=== PATIENT | female | born 1970 | race Caucasian/White ===

== ENCOUNTER 2023-09-16 14:37 | Outpatient (AMB) | payer BC, SELFPAY ==
--- NOTE | 2023-09-16 15:03 | A.OFFVIS_ITS ---
Intake Vital Signs 09/16/23 15:06 Height 5 ft 6 in Weight 162 lb 11.218 oz BMI 26.3 BP 122/68 Blood Pressure Location Rt brachial Position Sitting Pulse 79 Pulse Source Pulse Oximeter Pulse Oximetry (%) 98 Oxygen Delivery Method Room Air Intake Visit Reasons: + RITESH Intake Note: New pt presents today for +RITESH consult, referred by physiatry Dr Bowens. C/o pain in multiple areas. Pain started May 2022. Has tried PT, reports neck injection with Dr Bowens's office on Thursday. 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 Patient stated that since May 2022 she has been having neck pain. She also gets intermittent pain in her wrists and ankles. She has morning stiffness of her hands lasting about 2 hours. She gets intermittent She has gone through multiple rounds of chiropractor as well as physical therapy and stretching exercises. Yoga. Evaluated by Dr. Gilbert linn. She stated that at some point prednisone was prescribed a few weeks which did provide about 50% relief of the pain in her peripheral joints. She takes ibuprofen about 1200 mg a day in total. She stated that she had steroid injection by Dr. Bowens 2 days ago, she can not tell whether it has helped her or not. She denies any skin rashes. She states that she feels her fingers are puffy. She denies any history suggestive of Raynaud's. Denies any history of DVT/PE. She had 5 pregnancies in total, 4 children and 1 miscarriage. Denies any weight loss. Stated that in 2018 she was diagnosed with colon cancer and she had colon resection followed by chemotherapy. Chemotherapy was completed in 2019. States that she she was recently checked and there was no evidence of recurrence of her colon cancer. She is unaware of any family history of an autoimmune rheumatic disease but she has 2 sisters with thyroid disease. [facility] Medical History (Updated 09/16/23 @ 15:48 by Merline Multani MD) History of basal cell cancer Colon cancer RITESH positive Cervicalgia Pain in joint, multiple sites Surgical History S/P colon resection Family History Sister Thyroid disease Mother No problems noted. Father No problems noted. 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 Female Reproductive History Menstrual Total pregnancies: 5 Full term: 4 Ab spontaneous: 1 Review of Systems Const Reports fatigue, Denies fever(s), Reports frequent falls, Reports headache(s) and Denies weight loss ENT Reports headache(s) and Reports neck pain Musc Reports back pain, Reports arthralgias, Reports joint swelling, Reports neck pain and Reports stiffness Skin/Breast Denies rash and Reports unusual bruising Neuro Reports frequent falls and Reports headache(s) Psych Reports abnormal sleep pattern Endo Reports fatigue Physical Exam Vital Signs: Last Vital Signs Pulse 79 09/16/23 15:06 BP 122/68 09/16/23 15:06 Pulse Ox 98 09/16/23 15:06 Oxygen Delivery Method Room Air 09/16/23 15:06 BMI result Body Mass Index 26.3 Const General: cooperative, healthy appearing and comfortable Nutritional Appearance: overweight Orientation/consciousness: patient oriented x3 Limitations: no limitations HEENT Head: Yes normocephalic and Yes atraumatic Mouth: moist mucous membranes Resp Effort & Inspection: normal respiratory effort and able to speak in complete sentences Auscultation: clear to auscultation bilaterally Cardio Rate: regular rate Rhythm: regular rhythm Skin General skin exam: no rashes or lesions noted Neuro General: patient oriented x3 Extrem Other: Minimal puffiness of her fingers No active synovitis both hands No tender joints Normal nailfold capillaroscopy Normal range of motion of hands, wrists, elbows and shoulders without pain Normal range of motion of knees without pain Assessment & Plan Assessment & Plan (1) RITESH positive: Code(s): R76.8 - Other specified abnormal immunological findings in serum Plan: This is a 52-year-old female who presents for evaluation of positive RITESH 1-12 80 nucleolar pattern in the setting of neck pain as well as pain in her hands and ankles. For comprehensive serology to screen for underlying autoimmune rheumatic disease. Follow-up in about 6 weeks Plan I spent 47 minutes reviewing patient's chart, evaluating patient, ordering diagnostic workup, counseling patient and documenting in the chart Orders: Orders RITESH Reflex Titer and Pattern Today M32.9 - Systemic lupus erythematosus, unspecified Complement C3 Today M32.9 - Systemic lupus erythematosus, unspecified Sjogren's Antibodies Today M32.9 - Systemic lupus erythematosus, unspecified UA w Microscopic Today M32.9 - Systemic lupus erythematosus, unspecified Complete Blood Count Auto Diff Today M32.9 - Systemic lupus erythematosus, unspecified Immunofixation Pnl, Serum Today M32.9 - Systemic lupus erythematosus, unspecified Cyclic Citrullinated Peptide Today M25.50 - Pain in unspecified joint Beta-2 Glycoprotein Antibody Today D68.61 - Antiphospholipid syndrome Thyroid Peroxidase Antibodies Today E07.9 - Disorder of thyroid, unspecified Anti Extractable Nuclear Ag Today M32.9 - Systemic lupus erythematosus, unspecified Anti DNA DS Antibody Today M32.9 - Systemic lupus erythematosus, unspecified Complement C4 Today M32.9 - Systemic lupus erythematosus, unspecified C Reactive Protein Today M32.9 - Systemic lupus erythematosus, unspecified DNA Double Stranded-Crithidia Today M32.9 - Systemic lupus erythematosus, unspecified Erythrocyte Sedimentation Rate Today M32.9 - Systemic lupus erythematosus, unspecified Protein Creatinine Ratio, Ur Today M32.9 - Systemic lupus erythematosus, unspecified Comprehensive Met. Panel Today M32.9 - Systemic lupus erythematosus, unspecified Hepatitis A,B,C Profile Today Z11.59 - Encounter for screening for other viral diseases T Spot TB Today Z11.7 - Encounter for testing for latent tuberculosis infection Protein Electrophoresis, Serum Today M32.9 - Systemic lupus erythematosus, unspecified Scleroderma 12 Panel Today M34.9 - Systemic sclerosis, unspecified Cardiolipin Antibodies Today D68.61 - Antiphospholipid syndrome Lupus Anticoagulant Panel Today D68.61 - Antiphospholipid syndrome Thyroglobulin Antibodies Today E07.9 - Disorder of thyroid, unspecified TSH reflex Free T4 Today E07.9 - Disorder of thyroid, unspecified Coding Level of Care Code New Pt Level 4 (09950) Diagnoses RITESH positive R76.8
[2023-09-16 15:06] VITALS: BP 122/68; PULSE 79; O2SAT 98; BMI 26.3
== END 2023-09-16 15:41 | disposition home or self-care (01) ==
PROVIDERS: PCP Internal Medicine; Referring Provider Internal Medicine; Visit Provider Student in an Organized Health Care Education/Training Program
DX: R76.8 Other specified abnormal immunological findings in serum (principal)
CPT/HCPCS: 99204

== ENCOUNTER 2023-09-16 14:37 | Outpatient (REF) | payer BC, SELFPAY ==
[2023-09-16 16:04] LABS: MANUAL DIFF FLAG NO
[2023-09-16 16:54] LABS: Basophils Percent Auto 0.4 % (0-2); Hematocrit 41.8 % (37.0-47.0); Hemoglobin 13.9 g/dl (12.0-16.0); Imm Gran Abs Auto 0.03 X10*3/uL (0.00-0.03); Imm Gran Pct Auto 0.4 % (0.0-0.4); Lymphocytes Absolute Auto 1.4 X10*3/uL (1.2-4.9); Lymphocytes Percent Auto 16.8 % (20-40); Mean Corpuscular HGB Conc 33.3 g/dl (31.0-35.0); Mean Corpuscular Hemoglobin 28.7 pg (27.0-33.0); Mean Corpuscular Volume 86.2 fL (80.0-98.0); Mean Platelet Volume 9.5 fL (9.4-12.3); Monocytes Absolute Auto 0.5 X10*3/uL (0.1-1.2); Neutrophils Absolute Auto 6.3 x10*3/uL (2.0-8.3); Neutrophils Percent Auto 76.4 % (45-73); Platelet Count 358 X10*3/uL (160-400); Red Blood Count 4.85 X10*6/uL (4.20-5.50); Red Cell Distribution Width 12.5 % (11.0-16.0); White Blood Count 8.3 X10*3/uL (4.8-10.8)
[2023-09-16 17:28] LABS: Alanine Aminotransferase 17 U/L (0-31); Albumin Level 5.2 g/dL (3.5-5.0); Alkaline Phosphatase 96 U/L (39-117); Anion Gap 13 (12-20); Aspartate Amino Transferase 20 U/L (5-31); Bilirubin Total 0.3 mg/dL (0.0-1.0); Blood Urea Nitrogen 13 mg/dL (9-16); C Reactive Protein < 0.10 mg/dL (< or = 0.50); Carbon Dioxide 28 mmol/L (22-29); Chloride 103 mmol/L (96-108); Estimated Glomerular Filt Rate > 60; Glucose Random 94 mg/dL (60-115); Potassium 4.2 mmol/L (3.3-5.1); Sodium 140 mmol/L (135-145); Total Protein 8.9 g/dL (6.5-8.0)
[2023-09-16 17:37] LABS: TSH reflex Free T4 3.93 uIU/mL (0.32-4.0)
[2023-09-16 17:37] LABS: Appearance Urine Clear; Color Urine Yellow; Glucose Urine UA Negative (Negative); Leukocyte Esterase Urine Negative (Negative); Nitrite Urine Negative (Negative); PH 5.5 (5.0-9.0); Urine Blood Negative (Negative); Urine Ketones Negative (Negative); Urine Protein Negative (Neg-Trace)
[2023-09-16 17:41] LABS: Creatinine Urine 40.78 mg/dL; Total Protein Urine Random < 7 mg/dL (<12)
[2023-09-16 17:41] LABS: Erythrocyte Sedimentation Rate 23 MM/HR (0-20)
[2023-09-16 17:43] LABS: Bacteria Urine 1+ (None Seen); Hyaline Casts Urine 0-2 /LPF (0-2); RBC Urine 0-2 /HPF (0-2); WBC Urine 0-5 /HPF (0-5)
[2023-09-17 08:36] LABS: HBS Num1 0.75 mIU/mL (0-7.99); HBc Num1 0.13 S/CO (0.00-0.79); HBsAGNum1 0.27 S/CO (0.00-0.99); Hepatitis A Antibody IgM 0.17 Index (0-0.79); Hepatitis B Core Antibody Nonreactive (Nonreactive); Hepatitis B Surface Antigen Negative (Negative); ~Hepatitis A Antibody IgM Nonreactive (Nonreactive); ~Hepatitis B Surface Antibody NONREACTIVE (Nonreactive); ~Hepatitis C Antibody Nonreactive (Nonreactive)
[2023-09-17 11:33] LABS: Thyroglobulin Antibodies <1 IU/mL (< or = 1); Thyroid Peroxidase Antibodies 1 IU/mL (<9)
[2023-09-17 13:33] LABS: Anti DNA DS Antibody 2 IU/mL; Antibody to SS-A Antigen <1.0 NEG AI (<1.0 NEG); Antibody to SS-B Antigen <1.0 NEG AI (<1.0 NEG); SM/Ribonucleoprotein Ab <1.0 NEG AI (<1.0 NEG); Smith Protein <1.0 NEG AI (<1.0 NEG)
[2023-09-17 14:08] LABS: Cyclic Citrullinated Peptide <16 UNITS
[2023-09-17 22:48] LABS: Cardiolipin IgG Ab <2.0 GPL-U/mL; Cardiolipin IgM Ab 5.6 MPL-U/mL
[2023-09-18 15:44] LABS: Complement C3 206 mg/dL (83-193)
[2023-09-18 22:44] LABS: Prot Elec - Albumin 5.6 g/dL (3.8-4.8); Prot Elec - Alpha1 0.3 g/dL (0.2-0.3); Prot Elec - Alpha2 0.8 g/dL (0.5-0.9); Prot Elec - Beta 1 0.6 g/dL (0.4-0.6); Prot Elec - Beta 2 0.5 g/dL (0.2-0.5); Prot Elec - Gamma 1.2 g/dL (0.8-1.7); Prot Elec - Total Protein 9.1 g/dL (6.1-8.1)
[2023-09-18 23:29] LABS: TS Negative Control Passed; TS Panel A 0; TS Panel B 0; TS Positive Control Passed; TSpotTB Negative (Negative)
[2023-09-20 16:19] LABS: Beta-2 Glycoprotein IgA <2.0 U/mL (<20.0); Beta-2 Glycoprotein IgG <2.0 U/mL (<20.0); Beta-2 Glycoprotein IgM 2.4 U/mL (<20.0)
[2023-09-21 15:08] LABS: IgA 233 mg/dL (47-310); IgG 1255 mg/dL (600-1640); IgM 182 mg/dL (50-300)
[2023-09-22 12:23] LABS: DNAds, Crithidia Antibody Positive (Negative)
[2023-09-22 12:43] LABS: DNAds, Crithidia Antibody 1:10 titer (<1:10)
[2023-09-22 12:53] LABS: ANA Pattern 2 Nuclear, Speckled; Anti Nuclear Antibody Screen POSITIVE (NEGATIVE)
[2023-09-24 05:13] LABS: PTT (LAC) Screen 28 sec (<=40)
[2023-09-29 13:09] LABS: Centromere Protein A Ab <11 SI (<11); Centromere Protein B Ab <11 SI (<11); Fibrillarin Ab <11 SI (<11); PM SCL 100 Ab <11 SI (<11); PM SCL 75 Ab <11 SI (<11); RNA Polymerase III RP11 Ab <11 SI (<11); RNA Polymerase III RP155 Ab <11 SI (<11); SCL-70 Extractable Nuclear Ab <11 SI (<11); Th-To Ab <11 SI (<11); U1 SNRNP RNP 70KD <11 SI (<11); U1 SNRNP RNP A <11 SI (<11); U1 SNRNP RNP C <11 SI (<11)
== END 2023-09-16 14:38 | disposition home or self-care (01) ==
LOC: HO.LAB 14:37
PROVIDERS: PCP Internal Medicine; Visit Provider Student in an Organized Health Care Education/Training Program
DX: M32.9 Systemic lupus erythematosus, unspecified (principal); D68.61 Antiphospholipid syndrome; M25.50 Pain in unspecified joint; E07.9 Disorder of thyroid, unspecified; Z11.59 Encounter for screening for other viral diseases; Z11.7 Encounter for testing for latent tuberculosis infection
CPT/HCPCS: 36415; 80053; 81001; 82570; 82784; 84156; 84165; 84182; 84443; 85025; 85597; 85598; 85613; 85652; 85730; 86038; 86039; 86140; 86146; 86147; 86160; 86200; 86225; 86235; 86255; 86334; 86376; 86481; 86704; 86706; 86709; 86800; 86803; 87340

== ENCOUNTER 2023-11-05 12:33 | Outpatient (AMB) | payer BC, SELFPAY ==
[2023-11-05 12:38] VITALS: BP 126/78; PULSE 70; O2SAT 99; BMI 26.0
--- NOTE | 2023-11-05 12:38 | A.OFFVIS_ITS ---
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 She states that she gets pain and achiness in her hands, wrists, ankles, feet. She gets intermittent swelling of her fingers. Her rings are getting tight. Initial history: This is a 52-year-old female who presents for evaluation of a positive RITESH. Patient stated that since May 2022 she has been having neck pain. She also gets intermittent pain in her wrists and ankles. She has morning stiffness of her hands lasting about 2 hours. She gets intermittent She has gone through multiple rounds of chiropractor as well as physical therapy and stretching exercises. Yoga. Evaluated by Dr. Gilbert linn. She stated that at some point prednisone was prescribed a few weeks which did provide about 50% relief of the pain in her peripheral joints. She takes ibuprofen about 1200 mg a day in total. She stated that she had steroid injection by Dr. Bowens 2 days ago, she can not tell whether it has helped her or not. She denies any skin rashes. She states that she feels her fingers are puffy. She denies any history suggestive of Raynaud's. Denies any history of DVT/PE. She had 5 pregnancies in total, 4 children and 1 miscarriage. Denies any weight loss. Stated that in 2018 she was diagnosed with colon cancer and she had colon resection followed by chemotherapy. Chemotherapy was completed in 2019. States that she she was recently checked and there was no evidence of recurrence of her colon cancer. She is unaware of any family history of an autoimmune rheumatic disease but she has 2 sisters with thyroid disease. [facility] Medical History History of basal cell cancer Colon cancer RITESH positive Cervicalgia Pain in joint, multiple sites Surgical History S/P colon resection Family History Sister Thyroid disease Mother No problems noted. Father No problems noted. 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 Female Reproductive History Menstrual Total pregnancies: 5 Full term: 4 Ab spontaneous: 1 Review of Systems Const Reports fatigue, Denies fever(s) and Denies weight loss ENT Reports neck pain Musc Reports back pain, Reports arthralgias, Reports joint swelling, Reports neck pain and Reports stiffness Skin/Breast Denies rash and Reports unusual bruising Endo Reports fatigue Physical Exam Vital Signs: Last Vital Signs Pulse 70 11/05/23 12:38 BP 126/78 11/05/23 12:38 Pulse Ox 99 11/05/23 12:38 Oxygen Delivery Method Room Air 11/05/23 12:38 BMI result Body Mass Index 26.0 Const General: cooperative, healthy appearing and comfortable Nutritional Appearance: overweight Orientation/consciousness: patient oriented x3 Limitations: no limitations HEENT Head: Yes normocephalic and Yes atraumatic Mouth: moist mucous membranes Resp Effort & Inspection: normal respiratory effort and able to speak in complete sentences Auscultation: clear to auscultation bilaterally Cardio Rate: regular rate Rhythm: regular rhythm Skin General skin exam: no rashes or lesions noted Neuro General: patient oriented x3 Extrem Other: Minimal puffiness of her fingers and toes Bilateral elbow pain with full extension Left ankle tenderness to palpation without significant swelling No tender joints Normal nailfold capillaroscopy Normal range of motion of hands, wrists, elbows and shoulders without pain Normal range of motion of knees without pain Assessment & Plan Assessment & Plan (1) RITESH positive: Code(s): R76.8 - Other specified abnormal immunological findings in serum Category: Medical Plan: This is a 52-year-old female who presents for evaluation of positive RITESH. Dianna is negative except for borderline positive dsDNA. On exam patient has mild puffiness of her fingers and toes. Clinical picture suspicious for UCTD. Discussed risks and benefits of hydroxychloroquine. Patient agreed to proceed. Start hydroxychloroquine 200 mg Twice daily. Plan to reduce hydroxychloroquine in subsequent doses to 200 mg Twice daily x5 days and 200 mg daily x2 days a week (2) Hypercalcemia: Code(s): E83.52 - Hypercalcemia Category: Medical Plan: Elevated serum calcium. 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 Referred patient to galley hand Plan I spent 27 minutes reviewing patient's chart, evaluating patient, ordering diagnostic workup, counseling patient and documenting in the chart Orders: Orders Parathyroid Hormone Intact Today E83.52 - Hypercalcemia Vitamin D 25-OH (D2 and D3) Today E83.52 - Hypercalcemia Magnesium Today E83.52 - Hypercalcemia Angiotensin Converting Enzyme Today E83.52 - Hypercalcemia Comprehensive Met. Panel Today E83.52 - Hypercalcemia Vitamin D 1,25 dihydroxy Today E83.52 - Hypercalcemia Phosphorus Today E83.52 - Hypercalcemia Referrals Ophthalmology Referral Z79.899 - Other termite exterminator (current) drug therapy Medications: New hydroxychloroquine 200 mg PO BID 60 tabs 2RF Coding Level of Care Code Est Pt Level 4 (78938) Diagnoses RITESH positive R76.8 Hypercalcemia E83.52 Long-term use of hydroxychloroquine Z79.899
== END 2023-11-05 13:07 | disposition home or self-care (01) ==
PROVIDERS: PCP Internal Medicine; Visit Provider Student in an Organized Health Care Education/Training Program
DX: R76.8 Other specified abnormal immunological findings in serum (principal); E83.52 Hypercalcemia; Z79.899 Other long term (current) drug therapy
CPT/HCPCS: 99214

== ENCOUNTER 2023-11-05 12:33 | Outpatient (REF) | payer BC, SELFPAY ==
[2023-11-05 15:06] LABS: Parathyroid Hormone Intact 71.9 pg/mL (8.7-77.1)
[2023-11-05 15:08] LABS: Alanine Aminotransferase 17 U/L (0-31); Albumin Level 4.9 g/dL (3.5-5.0); Alkaline Phosphatase 91 U/L (39-117); Anion Gap 12 (12-20); Aspartate Amino Transferase 28 U/L (5-31); Bilirubin Total 0.4 mg/dL (0.0-1.0); Blood Urea Nitrogen 18 mg/dL (9-16); Calcium 10.5 mg/dL (8.4-10.2); Carbon Dioxide 28 mmol/L (22-29); Chloride 106 mmol/L (96-108); Estimated Glomerular Filt Rate > 60; Glucose Random 87 mg/dL (60-115); Magnesium 2.1 mg/dL (1.6-2.6); Phosphorus 2.6 mg/dL (2.7-4.5); Potassium 4.3 mmol/L (3.3-5.1); Sodium 142 mmol/L (135-145); Total Protein 8.4 g/dL (6.5-8.0)
[2023-11-09 20:43] LABS: VITAMIN D (1,25 OH) D3 56 pg/mL; Vit D (1,25-Dihydroxy) Total 56 pg/mL (18-72); Vitamin D (1,25 OH) D2 <8 pg/mL
[2023-11-10 12:38] LABS: Vitamin D 25-OH, D2 <4 ng/mL; Vitamin D 25-OH, D3 44 ng/mL; Vitamin D 25-OH, Total 44 ng/mL (30-100)
[2023-11-10 15:03] LABS: Angiotensin Converting Enzyme 54.4 U/L (9-67)
== END 2023-11-05 12:34 | disposition home or self-care (01) ==
LOC: HO.LAB 12:33
PROVIDERS: PCP Internal Medicine; Visit Provider Student in an Organized Health Care Education/Training Program
DX: E83.52 Hypercalcemia (principal)
CPT/HCPCS: 36415; 80053; 82164; 82306; 82652; 83735; 83970; 84100

== ENCOUNTER 2024-04-06 13:23 | Outpatient (AMB) | payer BC, SELFPAY ==
--- NOTE | 2024-04-06 13:31 | A.OFFVIS_ITS ---
Vital Signs 04/06/24 13:35 Height 5 ft 6 in Weight 158 lb 4.67 oz BMI 25.5 BP 120/62 Blood Pressure Location Rt brachial Position Sitting Pulse 79 Pulse Source Pulse Oximeter Pulse Oximetry (%) 91 L Oxygen Delivery Method Room Air Intake Visit Reasons: UCTD/CM Intake Note: Patient presents for UCTD. Allergies No Known Allergies Allergy (Verified 04/06/24 13:34) Medication List - Last Reconciled 04/06/24 by Merline Multani MD amlodipine 5 mg PO DAILY celecoxib 100 mg PO BID PRN diclofenac sodium 75 mg PO BID PRN hydroxychloroquine 200 mg PO BID sertraline 50 mg PO DAILY HPI Comments Details: 53-year-old female with UCTD returns for follow-up. She has been taking hydroxychloroquine regularly for the last 5 months. She states that she feels better overall. About 50% improvement in her overall joint pains. She continues to have pain in her entire left arm, left wrist, right low back. She states that she has done PT in the past for her neck, wrists, elbow. It did not help much. Initial history: This is a 52-year-old female who presents for evaluation of a positive RITESH. Patient stated that since May 2022 she has been having neck pain. She also gets intermittent pain in her wrists and ankles. She has morning stiffness of her hands lasting about 2 hours. She gets intermittent She has gone through multiple rounds of chiropractor as well as physical therapy and stretching exercises. Yoga. Evaluated by Dr. Gilbert linn. She stated that at some point prednisone was prescribed a few weeks which did provide about 50% relief of the pain in her peripheral joints. She takes ibuprofen about 1200 mg a day in total. She stated that she had steroid injection by Dr. Bowens 2 days ago, she can not tell whether it has helped her or not. She denies any skin rashes. She states that she feels her fingers are puffy. She denies any history suggestive of Raynaud's. Denies any history of DVT/PE. She had 5 pregnancies in total, 4 children and 1 miscarriage. Denies any weight loss. Stated that in 2018 she was diagnosed with colon cancer and she had colon resection followed by chemotherapy. Chemotherapy was completed in 2019. States that she she was recently checked and there was no evidence of recurrence of her colon cancer. She is unaware of any family history of an autoimmune rheumatic disease but she has 2 sisters with thyroid disease. [facility] Medical History History of basal cell cancer Colon cancer RITESH positive Cervicalgia Pain in joint, multiple sites Surgical History S/P colon resection Family History Sister Thyroid disease Mother No problems noted. Father No problems noted. 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 Female Reproductive History Menstrual Total pregnancies: 5 Full term: 4 Ab spontaneous: 1 Review of Systems ENT Reports neck pain Musc Reports back pain, Reports arthralgias, Reports neck pain and Reports stiffness Skin/Breast Denies rash Physical Exam Vital Signs: Last Vital Signs Pulse 79 04/06/24 13:35 BP 120/62 04/06/24 13:35 Pulse Ox 91 L 04/06/24 13:35 Oxygen Delivery Method Room Air 04/06/24 13:35 BMI result Body Mass Index 25.5 Const General: cooperative, healthy appearing and comfortable Nutritional Appearance: overweight Orientation/consciousness: patient oriented x3 Limitations: no limitations HEENT Head: Yes normocephalic and Yes atraumatic Mouth: moist mucous membranes Resp Effort & Inspection: normal respiratory effort and able to speak in complete sentences Cardio Rate: regular rate Rhythm: regular rhythm Skin General skin exam: no rashes or lesions noted Neuro General: patient oriented x3 Extrem Other: No wrist swelling or tenderness or pain with flexion-extension bilaterally No elbow pain with full flexion-extension Mild tenderness at the left common flexor origin at the medial epicondyle Negative resisted wrist flexion and resisted wrist extension test on the left Normal pain-free range of motion of elbows and shoulders without pain Slightly positive empty can test on the left Negative infraspinatus delmy bilaterally Positive lift-off test on the left Normal range of motion of knees without pain No ankle swelling or tenderness bilaterally Normal nailfold capillaroscopy Assessment & Plan Assessment & Plan (1) RITESH positive: Comment: UCTD dx 10/2023 (arthralgias ++ RITESH) Code(s): R76.8 - Other specified abnormal immunological findings in serum Category: Medical Plan: This is a 53-year-old female with UCTD who presents for follow-up. Doing better overall since hydroxychloroquine was started last visit. About 60% reported improvement. On exam today there are no tender joints. I think hydroxychloroquine was helpful and it is worth continuing. Continue with hydroxychloroquine but adjust the dose to 400 mg daily x5 days a week and 200 mg daily x2 days a week I think patient has other mechanical and degenerative causes of pain such as left golfer's elbow, mild left rotator cuff tendinopathy, mild cervical and lumbar osteoarthritis. 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 Advised patient to follow-up regularly with casket coverer Plan I spent 27 minutes reviewing patient's chart, evaluating patient, ordering diagnostic workup, counseling patient and documenting in the chart Medications: Changed From hydroxychloroquine 200 mg PO BID 60 tabs 2RF To hydroxychloroquine Take 2 tabs daily x5 days a week and 1 tab daily x2 days a week 144 tabs 1RF Coding Level of Care Code Est Pt Level 4 (18337) Diagnoses RITESH positive R76.8 Long-term use of hydroxychloroquine Z79.899
[2024-04-06 13:35] VITALS: BP 120/62; PULSE 79; O2SAT 91; BMI 25.5
== END 2024-04-06 13:57 | disposition home or self-care (01) ==
LOC: HO.RHE 13:24
PROVIDERS: PCP Internal Medicine; Visit Provider Student in an Organized Health Care Education/Training Program
DX: R76.8 Other specified abnormal immunological findings in serum (principal); Z79.899 Other long term (current) drug therapy
CPT/HCPCS: 99214

== ENCOUNTER 2024-10-06 13:33 | Outpatient (AMB) | payer BC, SELFPAY ==
[2024-10-06 13:47] VITALS: BP 118/66; PULSE 83; O2SAT 99; BMI 22.1
--- NOTE | 2024-10-06 13:47 | A.OFFVIS_ITS ---
Vital Signs 10/06/24 13:47 Height 5 ft 6 in Weight 137 lb 2.04 oz BMI 22.1 BP 118/66 Blood Pressure Location Lt brachial Position Sitting Pulse 83 Pulse Source Pulse Oximeter Pulse Oximetry (%) 99 Oxygen Delivery Method Room Air Intake Visit Reasons: UCTD Intake Note: Patient presents for follow up on RITESH+ today. Allergies No Known Allergies Allergy (Verified 10/06/24 13:52) Medication List - Last Reconciled 10/06/24 by Jerilyn Sivla MD amlodipine 5 mg PO DAILY diclofenac sodium 75 mg PO BID PRN hydroxychloroquine Take 2 tabs daily x5 days a week and 1 tab daily x2 days a week sertraline 50 mg PO DAILY HPI Comments Details: patient is a 53-year-old female with hypertension, depression and undifferentiated connective tissue disease here today for follow up Interval History: Patient last seen 04/06/[address] Multani. At that time she was following up for her undifferentiated connective tissue disease. She was taking hydroxychloroquine regularly and reported improvement in her joints about 50%. Other pains were attributed to mechanical/degenerative issues Today her main complaint is pain from her neck radiating down her arm Rheumatologic History: UCTD dx 10/2023 (arthralgias ++ RITESH) Initial history: This is a 52-year-old female who presents for evaluation of a positive RITESH. Patient stated that since May 2022 she has been having neck pain. She also gets intermittent pain in her wrists and ankles. She has morning stiffness of her hands lasting about 2 hours. She gets intermittent She has gone through multiple rounds of chiropractor as well as physical therapy and stretching exercises. Yoga. Evaluated by Dr. Gilbert linn. She stated that at some point prednisone was prescribed a few weeks which did provide about 50% relief of the pain in her peripheral joints. She takes ibuprofen about 1200 mg a day in total. She stated that she had steroid injection by Dr. Bowens 2 days ago, she can not tell whether it has helped her or not. She denies any skin rashes. She states that she feels her fingers are puffy. She denies any history suggestive of Raynaud's. Denies any history of DVT/PE. She had 5 pregnancies in total, 4 children and 1 miscarriage. Denies any weight loss. Stated that in 2018 she was diagnosed with colon cancer and she had colon resection followed by chemotherapy. Chemotherapy was completed in 2019. States that she she was recently checked and there was no evidence of recurrence of her colon cancer. She is unaware of any family history of an autoimmune rheumatic disease but she has 2 sisters with thyroid disease. Current Rheumatology Medication(s): hydroxychloroquine 200 mg twice a day for 5 days and then 200 mg daily for 2 days [facility] Medical History (Updated 10/06/24 @ 14:10 by Jerilyn Silva MD) Undifferentiated connective tissue disease History of basal cell cancer Colon cancer RITESH positive Cervicalgia Pain in joint, multiple sites Surgical History S/P colon resection Family History Sister Thyroid disease Mother No problems noted. Father No problems noted. 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 Review of Systems Const Details: Review of Systems Constitutional: Denies fever, chills, weight loss ENT: Denies vision changes, eye pain or eye redness, dental caries, dry mouth GI: Denies nausea, vomiting, diarrhea, abdominal pain, change in BM Pulm: Denies SOB, HINDS, hemoptysis, wheezing Cards: Denies chest pain, palpitations Skin: Denies Raynaud's, rash, nail changes, photosensitivity, TOOL CHECKER: Denies headaches, weakness, paresthesias, recurrent falls MSK: as per HPI All other systems reviewed and are unremarkable except noted above Physical Exam Vital Signs: Last Vital Signs Pulse 83 10/06/24 13:47 BP 118/66 10/06/24 13:47 Pulse Ox 99 10/06/24 13:47 Oxygen Delivery Method Room Air 10/06/24 13:47 BMI result Body Mass Index 22.1 Vital signs reviewed Physical Examination CONSTITUITIONAL Patient alert and cooperative. Well appearing and in no apparent painful distress HEENT Conjunctiva and sclera clear. Pupils equal round and reactive to light. No lymphadenopathy. CHEST/RESPIRATORY SYSTEM Normal respiratory effort and able to speak in complete sentences. Clear to auscultation bilaterally. No crackles, rales, rhonchi, wheezes heard. CARDIAC SYSTEM Regular rate and rhythm. S1 and S2 heard no murmurs. Radial pulses intact bilaterally MSK Hands: Able to make a fist. No synovitis noted to the MCPs, PIPs or DIPs. No tenderness to palpation of these joints. No deformities noted. Wrists: Full range of motion at the wrists without pain. No tenderness to palpation or synovitis noted to the wrists. Elbows: Full range of motion without pain. No tenderness, weakness, swelling, increased warmth or erythema. Shoulders: Full range of active range of motion without pain. No tenderness, weakness, swelling, increased warmth or erythema. Hips: Full range of motion without pain. Hip bursa: No tenderness to palpation Knees: Full range of motion. No tenderness, swelling, increased warmth or erythema.?No effusion or crepitations Ankles: Full range of motion. No tenderness, swelling, increased warmth or erythema.? Feet: Negative squeeze test. No tenderness to palpation or swelling of the MTPs. Tender points:?No tenderness to palpation of the bilateral trapezius, supraspinatus, greater trochanters, anterior costochondral junctions, bilateral gluteal areas, bilateral suboccipital muscle insertions SKIN Skin intact without rashes. Results Reviewed Results Reviewed: Laboratory Tests 09/16/23 11/05/23 16:02 13:31 WBC 8.3 RBC 4.85 Hgb 13.9 Hct 41.8 Plt Count 358 ESR 23 H Sodium 142 Potassium 4.3 Chloride 106 Carbon Dioxide 28 BUN 18 H Creatinine 0.87 AST 28 ALT 17 Alkaline Phosphatase 91 Albumin 4.9 Immunology labs 09/16/23 16:02 RITESH Screen POSITIVE A RITESH Titer 1:640 H SS-A/Ro Antibody <1.0 NEG SS-B/La Antibody <1.0 NEG Sm (Schulte) Antibody <1.0 NEG U1 snRNA A Antibody <11 U1 snRNA C Antibody <11 U1 snRNA 70kD Antibody <11 SM/NURSING TECHNICIAN IgG Antibody <1.0 NEG Scl-70 Scleroderma Ab <11 A-PM Scleroderma 75 Ab <11 A-PM Scleroderma 100 Ab <11 Double Strand DNA Ab 2 Th/To NURSING TECHNICIAN Ab <11 U3-NURSING TECHNICIAN (Fibrillarin) Ab <11 RNA Polymerase III RP11 Ab <11 RNA Polymerase III RP155 Ab <11 Centromere B Antibody <11 Centromere Protein A Ab <11 Beta-2-GPI IgG Ab <2.0 Beta-2-GPI IgA Ab <2.0 Beta-2-GPI IgM Ab 2.4 Thyroglobulin Antibody <1 Thyroid Peroxidase Ab 1 Anti-Cardiolipin IgG Ab <2.0 Anti-Cardiolipin IgM Ab 5.6 Complement C3 206 H Complement C4 32 Assessment & Plan Assessment & Plan (1) Undifferentiated connective tissue disease: Code(s): M35.9 - Systemic involvement of connective tissue, unspecified Category: Medical Plan: #UCTD Patient is a 53 y.o. female with UCTD here today for follow up. Doing well on hydroxychloroquine. Will add pregabalin to help with her neuropathic type pains Plan - Hydroxychloroquine 200mg bid x 5 days a week then 200mg daily x 2 days a week - Pregabalin 50mg at night - RTC 6 months - Labs before visit: CBC, CMP, ESR, CRP, C3, C4, dsDNA, UA, UPC (2) Long-term use of hydroxychloroquine: Comment: Eye exam OK 10/2023 Code(s): Z79.899 - Other nursing home (current) drug therapy Category: Medical Plan: #Long-term Use of Hydroxychloroquine Discussed with patient the risks and benefits of hydroxychloroquine in managing the rheumatic condition Benefits include: - Reduced pain, reduce mortality, maintenance of remission and reduction of flares Risks include: - GI upset, skin hyperpigmentation, retinal toxicity (especially after more than 5 years of use), myopathy Advised yearly ophthalmology visits Plan I spent 20 minutes reviewing the record and labs, taking a history, examining the patient, discussing the treatment plan, ordering diagnostic work up and documenting in the medical record Orders: Orders Complement C3 6 Months M3. - Systemic involvement of connective tissue, unspecified Complete Blood Count Auto Diff 6 Months M3. - Systemic involvement of connective tissue, unspecified Anti DNA DS Antibody 6 Months M35. - Systemic involvement of connective tissue, unspecified Comprehensive Met. Panel 6 Months M3.9 - Systemic involvement of connective tissue, unspecified Erythrocyte Sedimentation Rate 6 Months M35.9 - Systemic involvement of connec tive tissue, unspecified Protein Creatinine Ratio, Ur 6 Months M3. - Systemic involvement of connective tissue, unspecified Complement C4 6 Months M35.9 - Systemic involvement of connective tissue, unspecified C Reactive Protein 6 Months M35.9 - Systemic involvement of connective tissue, unspecified UA w Microscopic 6 Months M35.9 - Systemic involvement of connective tissue, unspecified Medications: New pregabalin 50 mg PO BEDTIME 90 caps 1RF M35.9 - Systemic involvement of connective tissue, unspecified Coding Level of Care Code Est Pt Level 3 (99170) Complex EM visit Add On G2211 Diagnoses Undifferentiated connective tissue disease M35.9 Long-term use of hydroxychloroquine Z79.899
--- OUTSIDE RECORDS SUMMARY | 2024-10-06 14:35 | XMS_ITS | Clinical Summary ---
Author Organization [facility] Address [address] [place] [address] Care Team Providers Care Hot Air Furnace Installer Repairer Name Role Phone Lupillo Zimmerman MD Primary Care Provider [phone] Allergies No known active allergies Medications Medication Sig Dispensed Refills Start Date End Date Status valACYclovir (VALTREX) 500 MG tablet Take 1 tablet (500 mg total) by mouth 2 (two) times a day. 0 Active sertraline (ZOLOFT) 50 MG tablet Take 1 tablet (50 mg total) by mouth daily. 0 Active amLODIPine (NORVASC) tablet 5 mg Take 1 tablet (5 mg total) by mouth daily. 0 Active baclofen (LIORESAL) 10 MG tablet Take 1 tablet (10 mg total) by mouth 3 (three) times a day. 0 Active predniSONE (DELTASONE) tablet 10 mg Take 1 tablet (10 mg total) by mouth daily. Taper 0 Active Active Problems Problem Noted Date Diagnosed Date Anxiety and depression 12/19/2022 4 H/O cold sores 12/19/2022 08/04/2023 Adenocarcinoma of colon 06/13/2022 Cancer Staging:Pathologic:Stage IIIB(pT3, pN2a, cM0) - Signed by Heather Erazo DO on 06/13/2022 Primary hypertension 07/16/2021 History of basal cell carcinoma 03/22/2020 Overview: BCC 1020 left thigh (superficial) Family history of colonic polyps 04/14/2019 08/04/2023 History of colon cancer 02/09/2018 08/04/19 24 Overview: 03/[address] Prater: Adenocarcinoma, predominantly low-grade (moderately differentiated), focal high-grade (tumor budding). Tumor size 5.5 x 3.7 x 0.5 cm. No macroscopic tumor perforation. Tumor invades through the muscularis propria to the cisco-colorectal tissue. PNI not identified. LV identified. Distal and proximal margins negative. 37 lymph nodes of which 4 were positive for metastatic carcinoma. + tumor ulceration. [id number] Adenocarcinoma of recto-sigmoid colon (15cm from anus) metastatic to intra- abdominal lymph nodes (4 of 37) (HCC) Family History Relation Name Status Comments Father Alive Mother Sister Alive Social History Tobacco Use Types Packs/Day Years Used Date Smoking Tobacco: Never Smokeless Tobacco: Never Alcohol Use Standard Drinks/Week Comments Yes 0 (1 standard drink = 0.6 oz pur e alcohol) social Sex and Gender Information Value Date Recorded Sex Assigned at Female 02/12/2022 10:21 AM EDT Gender Identity Not on file Sexual Orientation Not on file Job Start Date Occupation Industry Not on file Not on file Not on file Last Filed Vital Signs Vital Sign Reading Time Taken Comments Blood Pressure 123/71 08/04/2023 1:21 PM EST Pulse 70 08/04/2023 1:21 PM EST Temperature 36.7 ??C (98 ??F) 08/04/2023 1:21 PM EST Respiratory Rate - - Oxygen Saturation 100% 08/04/2023 1:21 PM EST Inhaled Oxygen Concentration - - Weight 73 kg (161 lb) 08/04/2023 1:21 PM EST Height 170.2 cm (5' 7 ) 08/04/2023 1:21 PM EST Body Mass Index 25.22 08/04/2023 1:21 PM EST Plan of Treatment Health Maintenance Due Date Last Done Comments Hepatitis B Vaccines (1 of 3 - 3-dose series) 1971 Hepatitis C Screening 1971 COVID-19 Vaccine (#1) 12/17/1976 Pneumococcal Vaccine (1 of 2 - PCV) 12/17/1977 Depression Screening 1983 BMI Counseling 12/17/1989 Preventative Health Evaluation 12/17/1989 Shingrix-Zoster Vaccine (1 o f 2) 12/17/1990 Cervical Cancer Screening (Pap Smear) 12/17/1992 Colon Cancer Screening (Colonoscopy) 12/17/2016 DTap / Tdap / Td (2 - Td or Tdap) 05/02/2020 05/02/2010 Breast Cancer Screening (Mammogram) 12/17/2021 Influenza Vaccine (#1) 2024 , 03/31/2019, 05/02/2010 RSV Ped < 20 months Aged Out No longe r eligible based on patient's age to complete this topic Care Teams Hot Air Furnace Installer Repairer Relationship Specialty Start Date End Date Lupillo Zimmerman MD PCP - General Internal Medicine 01/24/21
--- OUTSIDE RECORDS SUMMARY | 2024-10-06 14:35 | XMS_ITS | Encounter Summary ---
Author Organization [facility] Address [address] [place] [address] Care Team Providers Care Enrollment Services Vice President Name Role Phone Lupillo Zimmerman MD Primary Care Provider [phone] Encounter Details Date Type Department Care Team Description 03/25/2018 Nurse Only [facility] [address] [place] [address] Jeanne Alicia, RN Social History Tobacco Use Types Packs/Day Years [...] file Not on file Not on file documented as of this encounter Progress Notes * Jeanne Alicia, SURGICAL ENDOSCOPIST - 03/25/2018 3:03 PM EDT Chemotherapy Teaching ?? Reason for teaching: Chemotherapy Education Requested by: Dr. Miguel ?? Patient Education Plan Learning preference: reading and listening Educational Topic: chemotherapy, community resources, illness and nutrition Person(s) present: patient and family Barriers: none Teaching methods used: printed material and verbal explanation ? Patient arrives today for chemotherapy teaching accompanied by her . She is very anxious, but has a good support system in place. 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 Patient has been educated on the chemotherapy drugs and treatment regime and she will be receiving:Oxalplatin, Leucovorin, and Fluorouracil q 2 weeks for 12 cycles. Folder with contact information and informational sheets provided on each drug. I have discussed drug specific side effects with her which mostly commonly include, but are not limited to low blood counts, nausea, vomiting, diarrhea/constipation, fatigue, sensitivity to cold and peripheral neuropathy. Patient is anxious, is in agreement with the plan for treatment. Rx for ondansetron (8mg TID PRN nausea) called into [facility] in [place]. Patient introduced to Najma Nurse Navigator and JANET Robertson. Distress score was 6-7 and reviewed with patient, most of her concerns were related to side effects of treatment. She will be referred to Maria Luisa, for further counseling on nutrition throughout treatment. All questions were answered to patient's satisfaction at this time. Any further question/concerns patient, patient was encouraged to call. First chemotherapy appointment on 03/30/18 @ 11am. documented in this encounter Plan of Treatment Not on file documented as of this encounter Visit Diagnoses Not on filedocumented in this encounter Care Teams Enrollment Services Vice President Relationship Specialty Start Date End Date Lupillo Zimmerman MD PCP - General Internal Medicine 01/24/21 documented as of this encounter
== END 2024-10-06 14:36 | disposition home or self-care (01) ==
LOC: HO.RHE 13:33
PROVIDERS: PCP Internal Medicine; Visit Provider Student in an Organized Health Care Education/Training Program
DX: M35.89 Other specified systemic involvement of connective tissue (principal); Z79.899 Other long term (current) drug therapy
CPT/HCPCS: 99214

== ENCOUNTER 2024-10-17 07:26 | Outpatient (REF) | payer BC, SELFPAY ==
--- OUTSIDE RECORDS SUMMARY | 2024-10-17 07:28 | XMS_ITS | Clinical Summary ---
Author Organization [facility] Address [address] [place] [phone] Phone Care Team Providers Care Shingle Sawyer Name Role Phone Lupillo Zimmerman MD Primary Care Provider [phone] Allergies No known active allergies Medications amLODIPine (NORVASC) 5 mg tablet Take 1 tablet (5 mg total) by mouth daily. Active baclofen (LIORESAL) 10 mg tablet Take 1 tablet (10 mg total) by mouth 3 (three) times a day. Active valACYclovir (VALTREX) 500 mg tablet Take 1 tablet (500 mg total) by mouth 2 (two) times a day. Active celecoxib (CeleBREX) 100 mg capsule TAKE 1 CAPSULE ORALLY TWICE A DAY NEEDED FOR 30 DAYS 10/26/2023 Active hydroxychloroqui ne (PLAQUENIL) 200 mg tablet TAKE 2 TABS DAILY X5 DAYS A WEEK AND 1 TAB DAILY X2 DAYS A WEEK Active sertraline (ZOLOFT) 50 mg tabletIndication s:Anxiety disorder, unspecified TAKE 1 TABLET BY MOUTH EVERY DAY 90 tablet 1 09/15/2024 Active Active Problems Problem Noted Date Diagnosed Date Anxiety and depression 12/19/2022 Adenocarcinoma of colon (CMS/HCC V24, CMS/HCC V2 8) 06/13/2022 Primary hypertension 07/16/2021 Family history of colonic polyps 04/14/2019 Encounters Date Type Department Care Team Description 09/23/2024 Telephone Internal Medicine - [facility] [address] [place] [phone] Lupillo Zimmerman MD Referral (Jerilyn Silva MD ) 08/04/2024 2:00 PM EST - 08/04/2024 11:59 PM EST Hospital Encounter [facility] Infusion Center [address] [phone] Heather Erazo, Adenocarcinoma of colon (CMS/HCC V24, CMS/HCC V28) (Primary Dx) Discharge Disposition: Home or Self Care 08/04/2024 1:30 PM EST Office Visit [facility] Hematology Oncology [address] [place] [phone] Heather Erazo, Adenocarcinoma of colon (CMS/HCC V24, CMS/HCC V28) (Primary Dx) from Last 3 Months Surgical History Surgery Date Site/Laterality Comments OTHER SURGICAL HISTORY PROCEDURE: ---- OTHER ----; COMMENT: removal of sigmoid cancer COLONOSCOPY 01/26/2019 PROCEDURE: HISTORICAL COLONOSCOPY; COMMENT: negative OTHER SURGICAL HISTORY PROCEDURE: HISTORICAL CA BASAL CELL; COMMENT: BCC 03/20 left thigh (superficial) COLONOSCOPY 03/13/2022 PROCEDURE: HISTORICAL COLONOSCOPY; COMMENT: negative Medical History Medical History Date Comments Herpes genitalis DX:Herpes genit michael Cancer of sigmoid colon (CMS /HCC V24, CMS/HCC V28) 02/09/2018 DX:Cancer of sigmoid colon ( HCC) Family history of colonic polyps 04/14/2019 DX:Family history of colonic polyps History of basal cell carcinoma 03/22/2020 DX:History of basal cell carcinoma; COMMENT: BCC 03/20 left thigh (superficial) Connective tissue disease ([place]/HCC V24) DX:Connective tissue disease (HCC) Family History Medical History Relation Name Comments Breast cancer Aunt p 45 paternal Other: healthy 69 y/o as of 2019 Father Other: old age Maternal Grandmother Other: Cirrhosis, etoh age 57 Mother Other: ovarian cancer Other patern al second cousin Other: old age Paternal Grandmother Other: healthy, neg CN 2019 Sister 1 Whitney Other: healthy, neg CN 2019 Sister 2 Angi Other: Colon Polyps age onset 39 Sister 3 Glenna Other: healthy age 28 as of 2019 Sister 4 Murillo Relation Name Status Comments Aunt p 45 Alive Father Alive healthy Maternal Grandfather Maternal Grandmother Mother cirrhosis Other Paternal Grandfather (Age 50) PA Paternal Grandmother mild de mentia Sister 1 Whitney Alive healthy Sister 2 Angi Alive ovarian cyst Sister 3 Glenna Alive healthy Sister 4 Sommer Alive healthy Social History Tobacco Use Types Packs/Day Years Used Date Smoking Tobacco: Never Smokeless Tobacco: Never Tobacco Cessation:Counseling Given: Not Answered Alcohol Use Standard Drinks/Week Comments No 0 (1 standard drink = 0.6 oz pur e alcohol) Comments Unknown Sex and Gender Information Value Date Recorded Sex Assigned at Female 06/16/2024 1:02 PM EST Legal Sex Female 7:14 PM EST Gender Identity Female 06/16/2024 1:02 PM EST Sexual Orientation Straight 06/16/2024 1: 02 PM EST Obstetrics History Last Filed Vital Signs Vital Sign Reading Time Taken Comments Blood Pressure 128/85 08/04/2024 1:32 PM EST Pulse 79 08/04/2024 1:32 PM EST Temperature 36.7 ??C (98 ??F) 08/04/2024 1:32 PM EST Respiratory Rate - - Oxygen Saturation 98% 08/04/2024 1:32 PM EST Inhaled Oxygen Concentration - - Weight 64.4 kg (142 lb) 08/04/2024 1:32 PM EST Height 167.6 cm (5' 6 ) 02/09/2024 1:47 PM EDT Body Mass Index 22.92 02/09/2024 1:47 PM EDT Plan of Treatment Upcoming Encounters Date Type Department Care Team (Late st Contact Info) Description 10/21/2024 10:00 AM EDT Office Visit Internal Medicine - [facility] [address] [place] [phone] Ebony Teixeira, [place] [address] [place] [address] 03/02/2025 1:30 PM EDT Appointment Radiology Department - [address] [phone] 03/16/2025 11:00 AM EDT Appointment [facility] Endoscopy [address] [place] [phone] Shoshana Benavidez MD [address] [address] 08/10/2025 1:30 PM EDT Office Visit [facility] Hematology Oncology [address] [place] [phone] Heather Erazo, [address] [place] [address] Health Maintenance Due Date Last Done Comments COVID-19 Vaccine (#1) 12/17/1976 Hepatitis B Vaccines (1 of 3 - 19+ 3-dose series) 12/17/1990 Pneumococcal Vaccine: 50+ Years (1 of 2 - PCV) 12/17/1990 Pneumococcal Vaccine: Pediatrics (0 to 5 Years) and At-Risk Patients (6 to 64 Years) (1 of 2 - PCV) 12/17/1990 Zoster Vaccines (1 of 2) 12/17/1990 Cholesterol Screening (Lipid Panel) 05/09/2022 Colorectal Cancer Screening: Colonoscopy 05/09/2022 Depression Screening 05/09/2022 HIV Screening 05/09/2022 Hepatitis C Screening 05/09/2022 Social Influencers of Health Screening 05/09/2022 Influenza Vaccine (Season Ended) 2025 07/13/2020, 03/31/2019, 03/29/2019, Additional history exists Cervical Cancer Screening: Pap Smear 04/25/2025 04/25/2022, 11/22/2019, 09/07/2018 Hypertension/CHF/CAD Annual BMP Blood Test 08/04/2025 08/04/2024 Breast Cancer Screening 02/17/2026 02/18/20 24, 02/18/2024, 02/06/2023, Additional history exists DTaP,Tdap,and Td Vaccines (3 - Td or Tdap) 07/13/2030 07/13/2020, 05/02/2010 HIB Vaccines Aged Out No longer eligi ble based on patient's age to complete this topic HPV Vaccines Aged Out No longer eligi ble based on patient's age to complete this topic Hepatitis A Vaccines Aged Out No long er eligible based on patient's age to complete this topic IPV Vaccines Aged Out No longer eligi ble based on patient's age to complete this topic MMR Vaccines Aged Out No longer eligi ble based on patient's age to complete this topic Meningococcal ACWY Vaccine Aged Out N o longer eligible based on patient's age to complete this topic Meningococcal B Vaccine Aged Out No l onger eligible based on patient's age to complete this topic RSV Immunization Patients Under 20 months Aged Out No longer eligible based on patient's age to complete this topic Varicella Vaccines Aged Out No longer eligible based on patient's age to complete this topic Procedures Procedure Name Priority Date/Time Associated Diagnosis Comments CBC WITH AUTO DIFFERENTIAL Routine 08/04/2024 2:47 PM EST Adenocarcinoma of colon (CMS/HCC V24, CMS/HCC V28) CARCINOEMBRYONIC ANTIGEN Routine 025 2:47 PM EST Adenocarcinoma of colon (CMS/HCC V24, CMS/HCC V28) COMPREHENSIVE METABOLIC PANEL Routine 08/04/2024 2:47 PM EST Adenocarcinoma of colon (CMS/HCC V24, CMS/HCC V28) CBC AND DIFFERENTIAL Routine 08/04/2024 2:47 PM EST Adenocarcinoma of colon (CMS/HCC V24, CMS/HCC V28) SCREENING MAMMOGRAPHY BI 2-VIEW BREAST INC CAD Routine 02/18/2024 1:43 PM EDT Encounter for screening mammogram for malignant neoplasm of breast PAP SMEAR Routine 04/25/2022 from Last 3 Months or Most Recently Relevant to Health Maintenance Results * CBC auto differential (08/04/2024 2:47 PM EST) WBC 5.3 4.8 - 10.8 K/mcL LAB HEMETOLOGY METHOD 08/04/2024 4:35 PM EST [facility] RBC 4.10 3.80 - 4.80 M/mcL LAB HEMETOLOGY METHOD 08/04/2024 4:35 PM EST [facility] Hemoglobin 12.0 11.5 - 16.0 g/dL LAB HEMETOLOGY METHOD 08/04/2024 4:35 PM [facility] Hematocrit 36.1 35.0 - 47.0 % LAB HEMETOLOGY METHOD 08/04/2024 4:35 PM [facility] MCV 87.2 79.0 - 98.0 FL LAB HEMETOLOGY METHOD 08/04/2024 4:35 PM [facility] MCH 29.0 27.0 - 32.0 pcg LAB HEMETOLOGY METHOD 08/04/2024 4:35 PM [facility] MCHC 33.2 32.0 - 37.0 g/dL LAB HEMETOLOGY METHOD 08/04/2024 4:35 PM [facility] RDW 12.4 11.0 - 15.0 % LAB HEMETOLOGY METHOD 08/04/2024 4:35 PM [facility] Platelets 271 130 - 400 K/mcL LAB HEMETOLOGY METHOD 08/04/2024 4:35 PM [facility] MPV 9.9 7.0 - 11.0 FL LAB HEMETOLOGY METHOD 08/04/2024 4:35 PM [facility] NRBC 0.0 <1.0 % LAB HEMETOLOGY METHOD 08/04/2024 4:35 PM [facility] NRBC Absolute 0.00 <0.10 K/mcL LAB HEMETOLOGY METHOD 08/04/2024 4:35 PM [facility] Neutrophils Relative 69.9 % LAB HEMETOLOGY METHOD 08/04/2024 4:35 PM [facility] Lymphocytes Relative 20.5 % LAB HEMETOLOGY METHOD 08/04/2024 4:35 PM [facility] Monocytes Relative 7.3 % LAB HEMETOLOGY METHOD 08/04/2024 4:35 PM [facility] Eosinophils Relative 0.8 % LAB HEMETOLOGY METHOD 08/04/2024 4:35 PM EST [facility] Basophils Relative 1.1 % LAB HEMETOLOGY METHOD 08/04/2024 4:35 PM [facility] Immature Granulocytes Relative 0.4 % LAB HEMETOLOGY METHOD 08/04/2024 4:35 PM [facility] Neutrophils Absolute 3.71 1.50 - 7.00 K/mcL LAB HEMETOLOGY METHOD 08/04/2024 4:35 PM EST [facility] Lymphocytes Absolute 1.09 1.00 - 5.00 K/mcL LAB HEMETOLOGY METHOD 08/04/2024 4:35 PM EST [facility] Monocytes Absolute 0.39 0.20 - 1.00 K/mcL LAB HEMETOLOGY METHOD 08/04/2024 4:35 PM [facility] Eosinophils Absolute 0.04 0.00 - 0.50 K/mcL LAB HEMETOLOGY METHOD 08/04/2024 4:35 PM EST [facility] Basophils Absolute 0.06 0.00 - 0.20 K/mcL LAB HEMETOLOGY METHOD 08/04/2024 4:35 PM EST [facility] Immature Granulocytes Absolute 0.02 0.00 - 0.03 K/mcL LAB HEMETOLOGY METHOD 08/04/2024 4:35 PM EST [facility] Blood Blood sample taken from central line / Unknown Existing Catheter / Unknown 08/04/2024 2:47 PM EST 08/04/2024 4:30 PM EST us Heather Erazo DO LAB BLOOD ORDERABLES Final Result [facility] [address] [place] [address], * CEA (08/04/2024 2:47 PM EST) Pathologist [facility] CEA <2.0 0.0 - 5.0 ng/mL LAB CHEMISTRY METHOD 08/04/2024 5:08 PM [facility] Blood Blood sample taken from central line / Unknown Existing Catheter / Unknown 08/04/2024 2:47 PM EST 08/04/2024 4:30 PM EST [facility] - 08/04/2024 5:08 PM EST The Siemens Advia Centaur Chemiluminescent Immunoassay is used. Results obtained with different assay methods or kits cannot be used interchangeably. Results cannot be interpreted as absolute evidence of the presence or absence of malignant disease. us Heather Erazo DO LAB BLOOD ORDERABLES Final Result [facility] [address] [place] [address], * Comprehensive metabolic panel (08/04/2024 2:47 PM EST) [facility] Sodium 136 133 - 145 mmol/L LAB CHEMISTRY METHOD 08/04/2024 5:02 PM [facility] Potassium 3.9 3.5 - 5.5 mmol/L LAB CHEMISTRY METHOD 08/04/2024 5:02 PM [facility] Chloride 104 96 - 110 mmol/L LAB CHEMISTRY METHOD 08/04/2024 5:02 PM [facility] CO2 28 21 - 32 mmol/L LAB CHEMISTRY METHOD 08/04/2024 5:02 PM [facility] Anion Gap 4 3 - 11 LAB CHEMISTRY METHOD 08/04/2024 5:02 PM [facility] Glucose 70 70 - 100 mg/dL LAB CHEMISTRY METHOD 08/04/2024 5:02 PM [facility] BUN 18 5 - 25 mg/dL LAB CHEMISTRY METHOD 08/04/2024 5:02 PM [facility] Creatinine 0.70 0.50 - 1.10 mg/dL LAB CHEMISTRY METHOD 08/04/2024 5:02 PM [facility] eGFR 104 >=60 mL/min/1. 73m2 LAB CHEMISTRY METHOD 08/04/2024 5:02 PM [facility] Comment:Calculation based on the??Chronic Kidney Disease Epidemiology Collaboration (CKD-EPI) equation refit??without adjustment for race. BUN/Creatinine Ratio 25.7 LAB CHEMISTRY METHOD 08/04/2024 5:02 PM [facility] Calcium 9.8 8.5 - 10.5 mg/dL LAB CHEMISTRY METHOD 08/04/2024 5:02 PM [facility] AST (SGOT) 31 10 - 42 unit/L LAB CHEMISTRY METHOD 08/04/2024 5:02 PM [facility] ALT (SGPT) 28 10 - 60 unit/L LAB CHEMISTRY METHOD 08/04/2024 5:02 PM [facility] Alkaline Phosphatase 82 42 - 121 unit/L LAB CHEMISTRY METHOD 08/04/2024 5:02 PM [facility] Total Protein 7.4 6.0 - 8.0 g/dL LAB CHEMISTRY METHOD 08/04/2024 5:02 PM [facility] Albumin 4.3 3.2 - 5.0 g/dL LAB CHEMISTRY METHOD 08/04/2024 5:02 PM [facility] Total Bilirubin 0.4 0.0 - 1.4 mg/dL LAB CHEMISTRY METHOD 08/04/2024 5:02 PM [facility] Blood Blood sample taken from central line / Unknown Existing Catheter / Unknown 08/04/2024 2:47 PM EST 08/04/2024 4:30 PM EST us Heather Erazo DO LAB BLOOD ORDERABLES Final Result [facility] [address] [place], [place] [address] [phone] * SCREENING MAMMOGRAPHY BI 2-VIEW BREAST INC CAD (02/18/2024 1:43 PM EDT) Anatomical Region Laterality Modality Radiographic Ekaterina ging 02/06/2023 1:06 PM EDT Narrative 02/19/2024 11:46 AM EDT This is a summary report. The complete report is available in the patient's medical record. If you cannot access the medical record, please contact the sending organization for a detailed fax or copy. Full field digital screening tomosynthesis mammography, reviewed with CAD and compared to previous. The breasts are composed of fatty and fibroglandular tissue. ??No suspicious mass, architectural distortion or suspicious calcifications are identified. IMPRESSION: : No mammographic evidence of malignancy. BIRADS 1-Negative; N. Breast density: The breasts have scattered areas of fibroglandular density. 5 year breast cancer risk assessment 1.2 % Lifetime breast cancer risk assessment 9.6 % Breast cancer risk category Low (<15%) Location: [facility], [address] [place] [address], [address], [phone] Procedure Note Timothy Herrera MD - 03/16/2024 This is a summary report. The complete report is available in thepatient's medical record. If you cannot access the medical record, pleasecontact the sending organization for a detailed fax or copy. Full field digital screening tomosynthesis mammography, reviewed with CADand compared to previous. The breasts are composed of fatty andfibroglandular tissue. No suspicious mass, architectural distortion orsuspicious calcifications are identified. IMPRESSION: : No mammographic evidence of malignancy. BIRADS 1-Negative; N. Breast density: The breasts have scattered areas of fibroglandulardensity. 5 year breast cancer risk assessment 1.2 % Lifetime breast cancer risk assessment 9.6 % Breast cancer risk category Low (<15%) Location: [facility], [address] [place] [address], [address], [phone] Delicia Martinez CNM IMG XR PROCEDURES Final Resu lt * Pap smear (04/25/2022) 04/25/2022 Narrative HISTORICAL TESTING LAB RESULTING AGENCY - 05/01/2022 3:06 PM EST [id number] THINPREP PAP, IMAGED: NEGATIVE FOR SQUAMOUS INTRAEPITHELIAL LESION AND MALIGNANCY . MISBAH CLARK , [place](ASCP) (CASE ELECTRONICALLY SIGNED 05 01 2022) RESULT OF APTIMA HIGH RISK HPV ASSAY: HIGH RISK HPV: ??NEGATIVE (SEROTYPES 16,18,31,33,35,39,45,51,52,56,58,59,66,68) COMPLETED ON 2022-04-29 ADEQUACY: SATISFACTORY ENDOCERVICAL/TRANSFORMATION ZONE COMPONENT ABSENT. SOURCE: THINPREP PAP HPV ANY DX: ??REFLEX 16 AND 18, CERVICAL, IMAGED CLINICAL INFORMATION: HPV ANY DIAGNOSIS. HORMONES, PAP HX POSITIVE ASCUS HPV + 2018, LMP 03/27/22, [Z01.419] Delicia Martinez CNM LAB CYTOLOGY ORDERABLES Eryn ochoa Result HISTORICAL TESTING LAB RESULTING AGENCY from Last 3 Months or Most Recently Relevant to Health Maintenance Insurance [facility] Care Teams Shingle Sawyer Relationship Specialty Start Date End Date Lupillo Zimmerman MD [address] [place] [address] PCP - General Internal Medicine 06/16/24
--- OUTSIDE RECORDS SUMMARY | 2024-10-17 07:29 | XMS_ITS | Encounter Summary ---
Author Organization [facility] Address [address] [place] [address] Care Team Providers Care Bottling Line Attendant Name Role Phone Lupillo Zimmerman MD Primary Care Provider [phone] Encounter Details Date Type Department Care Team Description 03/25/2018 Nurse Only [facility] Oncology Services [address] [place] [address] Jeanne Alicia, RN Social History Tobacco Use [...] this encounter Progress Notes * Jeanne Alicia, [employer] - 03/25/2018 3:03 PM EDT Chemotherapy Teaching [...] good support system in place. 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 Patient introduced to Najma Nurse Navigator and [...] on filedocumented in this encounter Care Teams Bottling Line Attendant Relationship Specialty Start Date End Date Lupillo Zimmerman MD PCP - General Internal Medicine 01/24/21 documented as of this encounter
--- OUTSIDE RECORDS SUMMARY | 2024-10-17 07:29 | XMS_ITS ---
Author Organization [facility] Address [address] [place] [phone] Phone Care Team Providers Care Car Rider Name Role Phone Lupillo Zimmerman MD Primary Care Provider [phone] Active Problems Problem Noted Date Diagnosed Date Anxiety and depression 12/19/2022 Adenocarcinoma of colon ([facility] V24, [facility] V2 8) 06/13/2022 Primary hypertension 07/16/2021 Family history of colonic polyps 04/14/2019 Current Oncology Plans CENTRAL VENOUS ACCESS ( CVA ) MAINTENANCE / BLOOD DRAW / CATHETER CLEARANCE / DRESSING CHANGE / FLUSH* Plan Start Date:06/16/2024 Plan Provider:Heather Erazo DO Linked Problems Adenocarcinoma of colon ([facility] V24, [facility] V28) Treatment Medications No medications scheduled. Past Plans No past plan information found. Radiation Treatments * No radiation treatments are [facility]. Treatments may have been administered in another system.
--- OUTSIDE RECORDS SUMMARY | 2024-10-17 07:29 | XMS_ITS | Clinical Summary ---
Author Organization [facility] Address [address] [place] [address] Care Team Providers Care Derrick Barge Operator Name Role Phone Lupillo Zimmerman MD Primary Care Provider [phone] Allergies No known active allergies Medications Medication [...] of basal cell carcinoma 03/22/2020 Overview: BCC 03/20 left thigh (superficial) Family history of colonic [...] positive for metastatic carcinoma. + tumor ulceration. 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
[2024-10-17 07:41] LABS: MANUAL DIFF FLAG NO
[2024-10-17 08:01] LABS: Basophils Absolute Auto 0.1 X10*3/uL (0.0-0.2); Basophils Percent Auto 1.4 % (0-2); Eosinophils Absolute Auto 0.1 X10*3/uL (0.0-0.4); Eosinophils Percent Auto 2.3 % (0-4); Hematocrit 37.6 % (37.0-47.0); Hemoglobin 12.4 g/dl (12.0-16.0); Imm Gran Abs Auto 0.03 X10*3/uL (0.00-0.03); Imm Gran Pct Auto 0.7 % (0.0-0.4); Lymphocytes Percent Auto 23.7 % (20-40); Mean Corpuscular Hemoglobin 29.1 pg (27.0-33.0); Mean Corpuscular Volume 88.3 fL (80.0-98.0); Mean Platelet Volume 9.5 fL (9.4-12.3); Monocytes Absolute Auto 0.5 X10*3/uL (0.1-1.2); Monocytes Percent Auto 10.6 % (2-11); Neutrophils Absolute Auto 2.7 x10*3/uL (2.0-8.3); Neutrophils Percent Auto 61.3 % (45-73); Platelet Count 257 X10*3/uL (160-400); Red Blood Count 4.26 X10*6/uL (4.20-5.50); Red Cell Distribution Width 12.4 % (11.0-16.0); White Blood Count 4.4 X10*3/uL (4.8-10.8)
[2024-10-17 08:36] LABS: Erythrocyte Sedimentation Rate 9 MM/HR (0-20)
[2024-10-17 08:42] LABS: Appearance Urine Clear; Color Urine Yellow; Glucose Urine UA Negative (Negative); Leukocyte Esterase Urine Trace (Negative); Nitrite Urine Negative (Negative); PH 5.5 (5.0-9.0); UMIC TRIGGER UA YES; Urine Blood Negative (Negative); Urine Ketones Negative (Negative); Urine Protein Negative (Neg-Trace)
[2024-10-17 08:44] LABS: Anion Gap 14 (12-20)
[2024-10-17 08:45] LABS: Bacteria Urine None Seen (None Seen); Hyaline Casts Urine 0-2 /LPF (0-2); RBC Urine 0-2 /HPF (0-2); Squamous Epithelial Cell Urine 0-2 /HPF (0-2); WBC Urine 0-5 /HPF (0-5)
[2024-10-17 08:48] LABS: Alanine Aminotransferase 25 U/L (0-31); Albumin Level 4.5 g/dL (3.5-5.0); Aspartate Amino Transferase 39 U/L (5-31); Bilirubin Total 0.3 mg/dL (0.0-1.0); Blood Urea Nitrogen 19 mg/dL (9-16); C Reactive Protein < 0.10 mg/dL (< or = 0.50); Carbon Dioxide 25 mmol/L (22-29); Chloride 102 mmol/L (96-108); Estimated Glomerular Filt Rate > 60; Glucose Random 97 mg/dL (60-115); Potassium 3.7 mmol/L (3.3-5.1); Sodium 137 mmol/L (135-145); Total Protein 7.5 g/dL (6.5-8.0)
[2024-10-17 08:54] LABS: Alkaline Phosphatase 81 U/L (39-117)
[2024-10-17 09:15] LABS: Creatinine Urine 30.84 mg/dL; Total Protein Urine Random < 7 mg/dL (<12)
[2024-10-19 11:05] LABS: Complement C3 155 mg/dL (83-193)
[2024-10-19 20:54] LABS: Anti DNA DS Antibody 1 IU/mL
== END 2024-10-17 07:27 | disposition home or self-care (01) ==
LOC: HO.LAB 07:26
PROVIDERS: Visit Provider Student in an Organized Health Care Education/Training Program
DX: M35.9 Systemic involvement of connective tissue, unspecified (principal)
CPT/HCPCS: 36415; 80053; 81001; 82570; 84156; 85025; 85652; 86140; 86160; 86225

== ENCOUNTER 2025-04-06 13:44 | Outpatient (AMB) | payer BC, SELFPAY ==
--- NOTE | 2025-04-06 14:14 | A.OFFVIS_ITS ---
Vital Signs 04/06/25 14:19 Height 5 ft 6 in Weight 142 lb 10.225 oz BMI 23.0 BP 124/82 Blood Pressure Location Lt brachial Position Sitting Pulse 82 Pulse Source Pulse Oximeter Pulse Oximetry (%) 95 Oxygen Delivery Method Room Air Intake Visit Reasons: f/u UCTD Intake Note: Patient presents for UCTD follow up. Allergies No Known Allergies Allergy (Verified 04/06/25 14:18) Medication List - Last Reconciled 04/06/25 by Jerilyn Silva MD amlodipine 5 mg PO DAILY diclofenac sodium 75 mg PO BID PRN hydroxychloroquine Take 2 tabs daily x5 days a week and 1 tab daily x2 days a week pregabalin 50 mg PO BEDTIME sertraline 50 mg PO DAILY HPI Comments Details: Patient is a 54-year-old female with hypertension, depression and undifferentiated connective tissue disease here today for follow up Interval History: Patient last seen 10/06/24 with me - On Hydroxychloroquine 200mg bid for 5 days then daily for 2 days - Main complaint is pain from her neck radiating down her arm - Given pregabalin Today - On Hydroxychloroquine 200mg bid for 5 days then daily for 2 days - Did not start pregabalin - seeing a biomed therapist and has had improvement in the pain - No complaints today - Last ophthal visit 1 year ago Rheumatologic History: UCTD dx 10/2023 (arthralgias ++ RITESH) Initial history: This is a 52-year-old female who presents for evaluation of a positive RITESH. Patient stated that since May 2022 she has been having neck pain. She also gets intermittent pain in her wrists and ankles. She has morning stiffness of her hands lasting about 2 hours. She gets intermittent She has gone through multiple rounds of chiropractor as well as physical therapy and stretching exercises. Yoga. Evaluated by Dr. Gilbert linn. She stated that at some point prednisone was prescribed a few weeks which did provide about 50% relief of the pain in her peripheral joints. She takes ibuprofen about 1200 mg a day in total. She stated that she had steroid injection by Dr. Bowens 2 days ago, she can not tell whether it has helped her or not. She denies any skin rashes. She states that she feels her fingers are puffy. She denies any history suggestive of Raynaud's. Denies any history of DVT/PE. She had 5 pregnancies in total, 4 children and 1 miscarriage. Denies any weight loss. Stated that in 2018 she was diagnosed with colon cancer and she had colon resection followed by chemotherapy. Chemotherapy was completed in 2019. States that she she was recently checked and there was no evidence of recurrence of her colon cancer. She is unaware of any family history of an autoimmune rheumatic disease but she has 2 sisters with thyroid disease. Current Rheumatology Medication(s): hydroxychloroquine 200 mg twice a day for 5 days and then 200 mg daily for 2 days [facility] Medical History (Updated 10/06/24 @ 14:10 by Jerilyn Silva MD) Undifferentiated connective tissue disease History of basal cell cancer Colon cancer RITESH positive Cervicalgia Pain in joint, multiple sites Surgical History S/P colon resection Family History Sister Thyroid disease Mother No problems noted. Father No problems noted. 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 Review of Systems Narrative Review of Systems Constitutional: Denies fever, chills, weight loss ENT: Denies vision changes, eye pain or eye redness, dental caries, dry mouth GI: Denies nausea, vomiting, diarrhea, abdominal pain, change in BM Pulm: Denies SOB, HINDS, hemoptysis, wheezing Cards: Denies chest pain, palpitations Skin: Denies Raynaud's, rash, nail changes, photosensitivity, RIFFLER TENDER: Denies headaches, weakness, paresthesias, recurrent falls MSK: as per HPI All other systems reviewed and are unremarkable except noted above Physical Exam Exam Exam: Vital signs reviewed Physical Examination CONSTITUITIONAL Patient alert and cooperative. Well appearing and in no apparent painful distress MSK Hands * Right Hand: Able to make a fist. No swelling or tenderness to palpation of the MCPs, PIPs or DIPs. * Left Hand: Able to make a fist. No swelling or tenderness to palpation of the MCPs, PIPs or DIPs. Wrists * Right Wrist: Full ROM to flexion and extension. No swelling or TTP * Left Wrist: Full ROM to flexion and extension. No swelling or TTP Elbows * Right Elbow: Full ROM. No swelling or TTP. No TTP of the medial epicondyle. No TTP of the lateral epicondyle * Left Elbow: Full ROM. No swelling or TTP. No TTP of the medial epicondyle. No TTP of the lateral epicondyle Shoulders * Right shoulder: Full ROM. No swelling noted. No TTP of the AC joint. No TTP of the subacromial bursa. No TTP of the posterior shoulder * Left shoulder: Full ROM. No swelling noted. No TTP of the AC joint. No TTP of the subacromial bursa. No TTP of the posterior shoulder Knees * Right knee: Full ROM. No swelling noted. No TTP of the knee joint line. No TTP of pes anserine bursa * Left knee: Full ROM. No swelling noted. No TTP of the knee joint line. No TTP of pes anserine bursa. Ankles * Right ankle: Good ankle dorsiflexion and plantar flexion. No swelling. No TTP of the ankle joint * Left ankle: Good ankle dorsiflexion and plantar flexion. No swelling. No TTP of the ankle joint Feet * Right foot: Negative squeeze test * Left foot: Negative squeeze test Tender points? * No tenderness to palpation of the bilateral trapezius, supraspinatus, anterior costochondral junctions, bilateral suboccipital muscle insertions SKIN No rashes Vital Signs: Last Vital Signs Pulse 82 04/06/25 14:19 BP 124/82 04/06/25 14:19 Pulse Ox 95 04/06/25 14:19 Oxygen Delivery Method Room Air 04/06/25 14:19 BMI result Body Mass Index 23.0 Results Reviewed Results Reviewed: Laboratory Tests 09/16/23 11/05/23 10/17/24 16:02 13:31 07:40 WBC 4.4 L RBC 4.26 Hgb 12.4 Hct 37.6 Plt Count 257 D ESR 23 H 9 Sodium 137 Potassium 3.7 Chloride 102 Carbon Dioxide 25 BUN 19 H Creatinine 0.79 AST 39 H ALT 25 C-Reactive Protein < 0.10 25-OH Vitamin D Total 44 Laboratory Tests 09/16/23 16:02 Cycl Citrul Peptide IgG <16 RITESH Screen POSITIVE A RITESH Titer 1:640 H RITESH Titer 2 1:160 H RITESH Pattern 2 Nuclear, Speckled A SS-A/Ro Antibody <1.0 NEG SS-B/La Antibody <1.0 NEG Sm (Schulte) Antibody <1.0 NEG U1 snRNA A Antibody <11 U1 snRNA C Antibody <11 U1 snRNA 70kD Antibody <11 SM/MANAGER INTERNAL IgG Antibody <1.0 NEG Scl-70 Scleroderma Ab <11 A-PM Scleroderma 75 Ab <11 A-PM Scleroderma 100 Ab <11 Anti-ds DNA Titer (Crith) 1:10 H Anti-ds DNA (Crithidia) Positive A Th/To MANAGER INTERNAL Ab <11 U3-MANAGER INTERNAL (Fibrillarin) Ab <11 RNA Polymerase III RP11 Ab <11 RNA Polymerase III RP155 Ab <11 Centromere B Antibody <11 Centromere Protein A Ab <11 Beta-2-GPI IgG Ab <2.0 Beta-2-GPI IgA Ab <2.0 Beta-2-GPI IgM Ab 2.4 Thyroglobulin Antibody <1 Thyroid Peroxidase Ab 1 Anti-Cardiolipin IgG Ab <2.0 Anti-Cardiolipin IgM Ab 5.6 Laboratory Tests 09/16/23 10/17/24 16:02 07:40 Double Strand DNA Ab 2 1 Complement C3 206 H 155 Complement C4 32 27 Laboratory Tests 10/17/24 07:36 Urine Color Yellow Urine Appearance Clear Urine Protein Negative Urine RBC 0-2 U Random Total Protein < 7 Assessment & Plan Assessment & Plan (1) Undifferentiated connective tissue disease: Code(s): M35.9 - Systemic involvement of connective tissue, unspecified Category: Medical Plan: #UCTD Patient is a 54 y.o. female with UCTD here today for follow up. Doing well on hydroxychloroquine. 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 Category: Medical Plan: #Long-term Use of Hydroxychloroquine Discussed with patient the risks and benefits of hydroxychloroquine in managing the rheumatic condition Benefits include: - Reduced pain, reduce mortality, maintenance of remission and reduction of flares Risks include: - GI upset, skin hyperpigmentation, retinal toxicity (especially after more than 5 years of use), myopathy Advised yearly ophthalmology visits Plan I spent 30 minutes reviewing the record and labs, taking a history, examining the patient, discussing the treatment plan, ordering diagnostic work up and documenting in the medical record Medications: Discontinued pregabalin Discontinued Reason: Doctor's Order 50 mg PO BEDTIME 90 caps 1RF M35.9 - Systemic involvement of connective tissue, unspecified Coding Level of Care Code Est Pt Level 4 (00392) Complex EM visit Add On G2211 Diagnoses Undifferentiated connective tissue disease M35.9 Long-term use of hydroxychloroquine Z79.899
[2025-04-06 14:19] VITALS: BP 124/82; PULSE 82; O2SAT 95; BMI 23.0
--- OUTSIDE RECORDS SUMMARY | 2025-04-06 16:44 | XMS_ITS | Clinical Summary ---
Author Organization [facility] Address [address] [place] [address] Care Team Providers Care Jewel Inserter Name Role Phone Lupillo Zimmerman MD Primary Care Provider [phone] Allergies No known active allergies Medications Medication [...] positive for metastatic carcinoma. + tumor ulceration. 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
--- OUTSIDE RECORDS SUMMARY | 2025-04-06 16:44 | XMS_ITS ---
Author Name [facility] Organization Unknown Care Team Organization Name Specialty Phone Email Start Date End Da te [facility] Lupillo Zimmerman Primary Care 04/08/2022 01/18/20 24
--- OUTSIDE RECORDS SUMMARY | 2025-04-06 16:44 | XMS_ITS ---
Author Organization [facility] Address [address] [place] [phone] Phone Care Team Providers Care Malt House Operator Name Role Phone Lupillo Zimmerman MD Primary Care Provider [phone] Active Problems Problem Noted Date Diagnosed Date Autoimmune disease ([facility] V24) 10/21/2024 Anxiety and depression 12/19/2022 Adenocarcinoma of colon ([facility] V24, [facility] V2 8) 06/13/2022 Primary hypertension 07/16/2021 Family history of colonic polyps 04/14/2019 Current Treatment and Therapy Plans CENTRAL VENOUS ACCESS ( CVA ) MAINTENANCE / BLOOD DRAW / CATHETER CLEARANCE / DRESSING CHANGE / FLUSH* Plan Start Date:06/16/2024 Plan Provider:Heather Erzao DO Linked Problems Adenocarcinoma of colon ([facility] V24, [facility] V28) Treatment Medications No medications scheduled. Past Treatment and Therapy Plans No past plan information found.
--- OUTSIDE RECORDS SUMMARY | 2025-04-06 16:44 | XMS_ITS | Clinical Summary ---
Author Organization [facility] Address [address] [place] [phone] Phone Care Team Providers Care Oxygen Equipment Preparer Name Role Phone Lupillo Zimmerman MD Primary Care Provider [phone] Allergies No known active allergies Medications amLODIPine [...] TWICE A DAY NEEDED FOR 30 DAYS 10/26/19 24 Active hydroxychloroq uine (PLAQUENIL) 200 mg tablet TAKE 2 TABS DAILY X5 DAYS A WEEK AND 1 TAB DAILY X2 DAYS A WEEK Active cyanocobalamin (VITAMIN B-12) 250 mcg tablet Take 1 tablet (250 mcg total) by mouth. Active diclofenac (VOLTAREN) 75 mg EC tablet Take 1 tablet (75 mg total) by mouth 2 (two) times a day. 04/29/20 24 Active estradioL (ESTRACE) 0.01 % (0.1 mg/gram) vaginal cream 1 applicatorful twice daily for 2 weeks, then up to three times per week as needed 02/09/20 24 Active pregabalin (LYRICA) 50 mg capsule Take 1 capsule (50 mg total) by mouth at bedtime. Max Daily Amount: 50 mg 10/07/19 25 Active ondansetron (ZOFRAN) 4 mg tablet Take 1 tablet (4 mg total) by mouth every 8 (eight) hours if needed for nausea or vomiting. 20 tablet 10/22/19 25 Active polyethylene glycol (Golytely) 236-22.74-6.74 -5.86 gram solution Take 4L by mouth once for one dose. May substitue any PEG. Starting at 2PM the day before your procedure drink 1 8oz glasses at your own pace until you complete half of the gallon. Finish 2nd half of the gallon at 8PM. 4000 mL 03/02/20 25 Active bisacodyL (DULCOLAX) 5 mg EC tablet Take 2 tablets by mouth right before beginning bowel prep. See instructions provided by the office 2 tablet 03/02/20 25 Active sertraline (ZOLOFT) 50 mg tabletIndicati ons:Anxiety disorder, unspecified TAKE 1 TABLET BY MOUTH EVERY DAY 90 tablet 1 03/27/20 25 Active sertraline (ZOLOFT) 50 mg tabletIndicati ons:Anxiety disorder, unspecified TAKE 1 TABLET BY MOUTH EVERY DAY 90 tablet 1 09/16/19 25 2024 Discontinued Active Problems Problem Noted Date Diagnosed Date Autoimmune disease ([facility] V24) 10/21/2024 Anxiety and depression 12/19/2022 Adenocarcinoma of colon ([facility]/HCC V24, [facility] V2 8) 06/13/2022 Primary hypertension 07/16/2021 Family history of colonic polyps 04/14/2019 Encounters Date Type Department Care Team Description 03/22/2025 1:00 PM EDT - 03/22/2025 11:59 PM EDT Hospital Encounter [facility] [address] [place] [phone] Adenocarcinoma of colon (CMS/HCC V24, [facility] V28) [C18.9] (Primary Dx) Discharge Disposition: Home or Self Care 03/20/2025 Results Follow-Up Gastroenterology - 299 [facility] [address] [place] [phone] Veronica Nguyen MA 03/16/2025 8:12 AM EDT Anesthesia Event [facility] [address] [place] [phone] Juarez Boyd MD 03/16/2025 7:46 AM EDT - 03/16/2025 11:59 PM EDT Hospital Encounter [facility] [address] [place] [phone] Zach Rodarte MD Sobo, Kathleen, CRNA Saliga, Jesse L, MD Adenocarcinoma of colon (CMS/HCC V24, CMS/HCC V28) Discharge Disposition: Home or Self Care 03/07/2025 Results Follow-Up Internal Medicine - [address] [phone] JacquieYesenia mar[place], [place] 03/02/2025 1:01 PM EDT - 03/02/2025 11:59 PM EDT Hospital Encounter Radiology Department - [address] [phone] Encounter for screening mammogram for breast cancer Discharge Disposition: Home or Self Care 02/10/2025 3:30 PM EDT Office Visit [facility] - [address] [phone] Harpal Parry NP Non-recurrent acute suppurative otitis media of left ear without spontaneous rupture of tympanic membrane (Primary Dx) from Last 3 Months Surgical [...] left thigh (superficial) Connective tissue disease ([facility] MS/HCC V24) DX:Connective tissue disease (HCC) Family History [...] age 28 as of 2019 Sister 4 Sommer Relation Name Status Comments Aunt p 45 Alive Father Alive healthy Maternal Grandfather Maternal Grandmother Mother cirrhosis Other Paternal Grandfather (Age 50) [place] Paternal Grandmother mild de mentia Sister 1 Whitney Alive healthy Sister 2 Angi Alive ovarian cyst Sister 3 Glenna Alive healthy Sister 4 Sommer Alive healthy Social History Tobacco Use Types Packs/Day Years Used Date Smoking Tobacco: Never Smokeless Tobacco: Never Tobacco Cessation:Counseling Given: Not Answered Alcohol Use Standard Drinks/Week Comments No 0 (1 standard drink = 0.6 oz pur e alcohol) Interpersonal Safety Answer Date Record ed Physical Abuse Unrecognized value 03/16/2025 Verbal Abuse Unrecognized value 03/16/2025 Comments No Sex and Gender Information Value Date Recorded Sex Assigned at Female 06/16/2024 1:02 PM EST Legal Sex Female 7:14 PM EST Gender Identity Female 06/16/2024 1:02 PM EST Sexual Orientation Straight 06/16/2024 1: 02 PM EST Obstetrics History Para Term AB IAB SAB Ectopic Multiple Livin g Live Births 4 4 4 4 Date Outcome GA Total Labor Labor/2nd/3rd Weight Sex Type Anes PTL Sarika A1 A5 Name Clin Term Term Term Term Last Filed Vital Signs Vital Sign Reading Time Taken Comments Blood Pressure 109/75 03/16/2025 8:55 AM EDT Pulse 65 03/16/2025 8:55 AM EDT Temperature 36.8 C (98.3 F) 03/16/2025 8:35 AM EDT Respiratory Rate 16 03/16/2025 8:55 AM EDT Oxygen Saturation 99% 03/16/2025 8:55 AM EDT Inhaled Oxygen Concentration - - Weight 62.1 kg (137 lb) 03/16/2025 8:04 AM EDT Height 170.2 cm (5' 7 ) 03/16/2025 8:04 AM EDT Body Mass Index 21.46 03/16/2025 8:04 AM EDT Plan of Treatment Upcoming Encounters Date Type Department Care Team (Late st Contact Info) Description 08/10/2025 1:30 PM EDT Office Visit [facility] [address] [place] [phone] Heather Erazo, DO [address] [place] [address] Health Maintenance Due Date Last Done Comments COVID-19 Vaccine (#1) 12/17/1976 Hepatitis B Vaccines (1 of 3 - 19+ 3-dose series) 12/17/1990 Zoster Vaccines (1 of 2) 12/17/1990 Pneumococcal Vaccine: 50+ Years (1 of 1 - PCV) 12/17/2021 Cholesterol Screening (Lipid Panel) 05/09/2022 HIV Screening 05/09/2022 Hepatitis C Screening 05/09/2022 Social Influencers of Health Screening 05/09/2022 Depression Screening 06/01/2024 Influenza Vaccine (#1) 2025 , 03/31/2019, 03/29/2019, Additional history exists Cervical Cancer Screening: Pap Smear 04/25/2025 04/25/2022, 11/22/2019, 09/07/2018 Hypertension/CHF/CAD Annual BMP Blood Test 08/04/2025 08/04/2024 Breast Cancer Screening 03/02/2027 03/02/20, 02/18/2024, 02/18/2024, Additional history exists Colorectal Cancer Screening: Colonoscopy 03/16/2030 03/16/2025 DTaP,Tdap,and Td Vaccines (3 - Td or Tdap) 07/13/2030 07/13/2020, 05/02/2010 RSV Immunization Adult Patients (1 - 1-dose 75+ series) 12/17/2046 HIB Vaccines Aged Out No longer eligi [...] on patient's age to complete this topic Goals Goal Patient Goal Type Associated Problems Recent Progress Patient-Stated? Author Autogenera niecy Goal Care Plan Autogenerated Problem No Marla Estrella Procedures Procedure Name Priority Date/Time Associated Diagnosis Comments COLONOSCOPY Routine 03/16/2025 8:34 AM EDT Adenocarcinoma of colon ([facility]/HCC V24, CMS/HCC V28) TISSUE EXAM Routine 03/16/2025 8:28 AM EDT Adenocarcinoma of colon (CMS/HCC V24, CMS/HCC V28) MG MAMMO DIGITAL SCREENING W MAURO BILAT Routine 03/02/2025 1:22 PM EDT Encounter for screening mammogram for breast cancer COMPREHENSIVE METABOLIC PANEL Routine 08/04/2024 2:47 PM EST Adenocarcinoma of colon (CMS/HCC V24, CMS/HCC V28) PAP SMEAR Routine 04/25/2022 from Last 3 Months or Most Recently Relevant to Health Maintenance Results * COLONOSCOPY Anesthesia - MAC; [facility] (03/16/2025 8:34 AM EDT) Anatomical Region Laterality Modality Endoscopy 03/16/2025 8:05 AM EDT Impressions 03/16/2025 8:35 AM EDT - One 3 mm polyp in the descending colon, removed with a cold snare. Resected and retrieved. - Patent end-to-side colo-colonic anastomosis, characterized by healthy appearing mucosa. - Non-bleeding internal hemorrhoids. - The examination was otherwise normal on direct and retroflexion views. Recommendation: - Discharge patient to home. - Resume previous diet. - Continue present medications. - Await pathology results. - Repeat colonoscopy for surveillance based on pathology results. - Return to GI office PRN. Narrative 03/16/2025 8:35 AM EDT [facility] Patient Name: Javan Bryan Procedure Date: 03/16/2025 8:05 AM Date of : 1970 Age: 54 Room: ROOM 17 Gender: Female Note Status: Finalized Attending MD: Zach Rodarte MD, Procedure Date No Time: 03/16/2025 Procedure: Colonoscopy Indications: High risk colon cancer surveillance: Personal history of colon cancer Providers: Zach Rodarte MD Referring MD: Shoshana Benavidez MD Medicines: Monitored Anesthesia Care Complications: No immediate complications. Estimated Blood Loss: Estimated blood loss: none. Procedure: Pre-Anesthesia Assessment: - ASA Grade Assessment: II - A patient with mild systemic disease. - After reviewing the risks and benefits, the patient was deemed in satisfactory condition to undergo the procedure. After I obtained informed consent, the scope was passed under direct vision. Throughout the procedure, the patient's blood pressure, pulse, and oxygen saturations were monitored continuously.The Olympus Pediatric Colonoscope was introduced through the anus and advanced to the cecum, identified by appendiceal orifice and ileocecal valve. The colonoscopy was performed without difficulty. The patient tolerated the procedure well. The quality of the bowel preparation was good. Findings: A 3 mm polyp was found in the descending colon. The polyp was sessile. The polyp was removed with a cold snare. Resection and retrieval were complete. Estimated blood loss was minimal. There was evidence of a prior end-to-side colo-colonic anastomosis in the recto-sigmoid colon. This was patent and was characterized by healthy appearing mucosa. Non-bleeding internal hemorrhoids were found during retroflexion. The hemorrhoids were small. The exam was otherwise without abnormality on direct and retroflexion views. Procedure Code(s): --- Professional --- 23214, Colonoscopy, flexible; with removal of tumor(s), polyp(s), or other lesion(s) by snare technique Diagnosis Code(s): --- Professional --- Z85.038, Personal history of other malignant neoplasm of large intestine D12.4, Benign neoplasm of descending colon CPT copyright 2020 [employer]. All rights reserved. The codes documented in this report are preliminary and upon ict help desk technician review may be revised to meet current compliance requirements. Zach Rodarte MD 03/16/2025 8:34:50 AM This report has been signed electronically.Zach Rodarte MD Number of Addenda: 0 Note Initiated On: 03/16/2025 8:05 AM Scope In: Scope Out: Endoscopy Department at [facility] - [address] [place] [phone] Procedure Note Zach Rodarte MD - 03/16/2025 [facility] Patient Name: Javan Bryan Procedure Date: 03/16/2025 8:05 AM Date of : 1970 Age: 54 Room: ROOM 17 Gender: Female Note Status: Finalized Attending MD: Zach Rodarte MD, Procedure Date No Time: 03/16/2025 Procedure: Colonoscopy Indications: High risk colon cancer surveillance: Personalhistory of colon cancer Providers: Zach Rodarte MD Referring MD: Shoshana Benavidez MD Medicines: Monitored Anesthesia Care Complications: No immediate complications. Estimated Blood Loss: Estimated blood loss: none. Procedure: Pre-Anesthesia Assessment: - ASA Grade Assessment: II - A patient with mild systemic disease. - After reviewing the risks and benefits, thepatient was deemed in satisfactory condition to undergo the procedure. After I obtained informed consent, the scope was passed under direct vision. Throughout theprocedure, the patient's blood pressure, pulse, and oxygen saturations were monitored continuously.The Olympus Pediatric Colonoscope was introduced through theanus and advanced to the cecum, identified byappendiceal orifice and ileocecal valve. The colonoscopy was performed without difficulty. The patient tolerated the procedure well. The quality of the bowel preparation was good. Findings: A 3 mm polyp was found in the descending colon. The polyp was sessile. The polyp was removed with acold snare. Resection and retrieval were complete. Estimated blood loss was minimal. There was evidence of a prior cwd-tq-znbaavxe-colonic anastomosis in the recto-sigmoid colon. This was patent and was characterized by healthy appearing mucosa. Non-bleeding internal hemorrhoids were found during retroflexion. The hemorrhoids were small. The exam was otherwise without abnormality ondirect and retroflexion views. Procedure Code(s): --- Professional --- 47654, Colonoscopy, flexible; with removal of tumor(s), polyp(s), or other lesion(s) by snare technique Diagnosis Code(s): --- Professional --- Z85.038, Personal history of other malignantneoplasm of large intestine D12.4, Benign neoplasm of descending colon CPT copyright 2020 [employer]. All rights reserved. The codes documented in this report are preliminary and upon ict help desk technician reviewmay be revised to meet current compliance requirements. Zach Rodarte MD 03/16/2025 8:34:50 AM This report has been signed electronically.Zach Rodarte MD Number of Addenda: 0 Note Initiated On: 03/16/2025 8:05 AM Scope In: Scope Out: Endoscopy Department at [facility] - [address] [place] [phone] IMPRESSION: - One 3 mm polyp in the descending colon, removed with a cold snare. Resected and retrieved. - Patent end-to-side colo-colonic anastomosis, characterized by healthy appearing mucosa. - Non-bleeding internal hemorrhoids. - The examination was otherwise normal on directand retroflexion views. Recommendation: - Discharge patient to home. - Resume previous diet. - Continue present medications. - Await pathology results. - Repeat colonoscopy for surveillance based on pathology results. - Return to GI office PRN. us Shoshana Benavidez MD GI~PROCEDURE ORDERABLES Fin al Result * Tissue exam (03/16/2025 8:28 AM EDT) Final Diagnosis Polyp, descending colon, polypectomy: - Hyperplastic polyp. 03/17/2025 8:[address] [facility] at 0827 EDT Gross Description A. Large Intestine, Left/Descending Colon, polyp x1: Labeled desc colon polyp x 1 . Received in formalin, is an approximately 0.3 cm in greatest diameter soft to rubbery, sebastian-pink to red, polypoid tissue fragment, inked green at the margin, admixed with fecal/food debris, and minimal mucoid material. The specimen is wrapped in paper and submitted in toto in one cassette, one piece, multiple levels. hs/DG 03/17/2025 8:27 AM EDT [facility] Disclaimer Unless otherwise specified, all tissue is 10% NB formalin fixed and paraffin embedded. 03/17/2025 8:27 AM EDT [facility] Tissue Descending colon structure / Unknown 03/16/2025 8:28 AM EDT 03/16/2025 10:42 AM EDT us Zach Rodarte MD LAB PATHOLOGY ORDERABLES Eryn ochoa Result [facility] [address] [place] [address], * MG Mammo Digital Screening w Mauro bilat (03/02/2025 1:22 PM EDT) Anatomical Region Laterality Modality Breast Bilateral Mammography 03/06/2025 9:15 AM EDT Impressions 03/06/2025 9:18 AM EDT No mammographic evidence for malignancy. BI-RADS CATEGORY: 1 - NEGATIVE RECOMMENDATION: Screening bilateral mammogram is recommended in 1 year. Mammo Location: [facility], [address] [place] [address], [id number], . -------- FINAL REPORT -------- Dictated By: Tiki Chavarria Dictated Date: 03/06/2025 09:15 ET Assigned Physician: Tiki Chavarria Reviewed and Electronically Signed By: Tiki Chavarria Signed Date: 03/06/2025 09:18 ET Workstation ID: [id number] Transcribed By: Self Edit Transcribed Date: 03/06/2025 09:15 ET Narrative 03/06/2025 9:18 AM EDT Bilateral screening mammogram. CLINICAL: 54 years old, Female, routine annual exam. COMPARISON: Prior mammograms, latest from 02/18/2024. TECHNIQUE: Bilateral MLO and CC views were obtained digitally with 2 D C views and 3-D mammogram (digital breast tomosynthesis). Computer-aided detection was utilized in evaluation of this exam (CAD). FINDINGS: There is no evidence of suspicious mass or architectural distortion. No worrisome calcifications are evident. There has been no significant change from prior exam(s). BREAST DENSITY: B - There are scattered areas of fibroglandular density. Procedure Note Tiki Chavarria MD - 03/06/2025 Bilateral screening mammogram. CLINICAL: 54 years old, Female, routine annual exam. COMPARISON: Prior mammograms, latest from 02/18/2024. TECHNIQUE: Bilateral MLO and CC views were obtained digitally with 2 D Cviews and 3-D mammogram (digital breast tomosynthesis). Computer-aideddetection was utilized in evaluation of this exam (CAD). FINDINGS: There is no evidence of suspicious mass or architectural distortion. Noworrisome calcifications are evident. There has been no significantchange from prior exam(s). BREAST DENSITY: B - There are scattered areas of fibroglandular density. IMPRESSION: No mammographic evidence for malignancy. BI-RADS CATEGORY: 1 - NEGATIVE RECOMMENDATION: Screening bilateral mammogram is recommended in 1 year. Mammo Location: [facility], [address] [place] [address], [id number], . -------- FINAL REPORT -------- Dictated By: Tiki Chavarria Dictated Date: 03/06/2025 09:15 ET Assigned Physician: Tiki Chavarria Reviewed and Electronically Signed By: Tiki Chavarria Signed Date: 03/06/2025 09:18 ET Workstation ID: [id number] Transcribed By: Self Edit Transcribed Date: 03/06/2025 09:15 ET us Lupillo Zimmerman MD IMG BI PROCEDURES Final Result * Comprehensive metabolic panel (08/04/2024 2:47 PM EST) Sodium 136 133 - 145 mmol/L LAB CHEMISTRY METHOD 08/04/2024 5:02 PM [facility] Potassium 3.9 3.5 - 5.5 mmol/L LAB CHEMISTRY METHOD 08/04/2024 5:02 PM [facility] Chloride 104 96 - 110 mmol/L LAB CHEMISTRY METHOD 08/04/2024 5:02 PM [facility] CO2 28 21 - 32 mmol/L LAB CHEMISTRY METHOD 08/04/2024 5:02 PM [facility] Anion Gap 4 3 - 11 LAB CHEMISTRY METHOD 08/04/2024 5:02 PM [facility] Glucose 70 70 - 100 mg/dL LAB CHEMISTRY METHOD 08/04/2024 5:02 PM [facility] BUN 18 5 - 25 mg/dL LAB CHEMISTRY METHOD 08/04/2024 5:02 PM [facility] Creatinine 0.70 0.50 - 1.10 mg/dL LAB CHEMISTRY METHOD 08/04/2024 5:02 PM [facility] eGFR 104 >=60 mL/min/1. 73m2 LAB CHEMISTRY METHOD 08/04/2024 5:02 PM [facility] Comment:Calculation based on the Chronic Kidney Disease Epidemiology Collaboration (CKD-EPI) equation refit without adjustment for race. BUN/Creatinine Ratio 25.7 LAB CHEMISTRY METHOD 08/04/2024 5:02 PM [facility] Calcium 9.8 8.5 - 10.5 mg/dL LAB CHEMISTRY METHOD 08/04/2024 5:02 PM [facility] AST (SGOT) 31 10 - 42 unit/L LAB CHEMISTRY METHOD 08/04/2024 5:02 PM [facility] ALT (SGPT) 28 10 - 60 unit/L LAB CHEMISTRY METHOD 08/04/2024 5:02 PM [facility] Alkaline Phosphatase 82 42 - 121 unit/L LAB CHEMISTRY METHOD 08/04/2024 5:02 PM EST [facility] Total Protein 7.4 6.0 - 8.0 g/dL LAB CHEMISTRY METHOD 08/04/2024 5:02 PM EST [facility] Albumin 4.3 3.2 - 5.0 g/dL LAB CHEMISTRY METHOD 08/04/2024 5:02 PM EST [facility] Total Bilirubin 0.4 0.0 - 1.4 mg/dL LAB CHEMISTRY METHOD 08/04/2024 5:02 PM EST [facility] Blood Blood sample taken from central line / Unknown Existing Catheter / Unknown 08/04/2024 2:47 PM EST 08/04/2024 4:30 PM EST Heather Erazo DO LAB BLOOD ORDERABLES Final Result [facility] [address] [place] [address], * Pap smear (04/25/2022) 04/25/2022 Narrative HISTORICAL TESTING LAB RESULTING AGENCY - 05/01/2022 3:06 PM EST [id number] THINPREP PAP, IMAGED: NEGATIVE FOR SQUAMOUS INTRAEPITHELIAL LESION AND MALIGNANCY . IONA BARAJAS(ASCP) (CASE ELECTRONICALLY SIGNED 05 01 2022) RESULT OF APTIMA HIGH RISK HPV ASSAY: HIGH RISK HPV: NEGATIVE (SEROTYPES 16,18,31,33,35,39,45,51,52,56,58,59,66,68) COMPLETED ON 2022-04-29 ADEQUACY: SATISFACTORY ENDOCERVICAL/TRANSFORMATION ZONE COMPONENT ABSENT. SOURCE: THINPREP PAP HPV ANY DX: REFLEX 16 AND 18, CERVICAL, IMAGED CLINICAL INFORMATION: HPV ANY DIAGNOSIS. HORMONES, PAP HX POSITIVE ASCUS HPV + 2019, LMP 03/27/22, [Z01.419] Delicia Juan CN LAB CYTOLOGY ORDERABLES Eryn ochoa Result HISTORICAL TESTING LAB RESULTING AGENCY from Last 3 Months or Most Recently Relevant to Health Maintenance Additional Health Concerns Active Problems Noted Date Diagnosed Date Autogenerated Problem 02/27/2025 Insurance [facility] Care Teams Oxygen Equipment Preparer Relationship Specialty Start Date End Date Lupillo Zimmerman MD [address] [place] [id number] PCP - General Internal Medicine 01/31/25
--- OUTSIDE RECORDS SUMMARY | 2025-04-06 16:44 | XMS_ITS | Encounter Summary ---
Author Organization [facility] Address [address] [place] [address] Care Team Providers Care Nailhead Puncher Name Role Phone Lupillo Zimmerman MD Primary Care Provider [phone] Encounter Details Date Type Department Care Team (Late Contact Info) Description 03/20/2025 Results Follow-Up Gastroenterology - [address] [phone] Veronica Nguyen [place] Social History Tobacco Use Types Packs/Day Years Used Date Smoking Tobacco: Never Smokeless Tobacco: Never Alcohol Use Standard Drinks/Week Comments No 0 [...] Orientation Straight 06/16/2024 1: 02 PM EST documented as of this encounter Plan of Treatment Upcoming Encounters Date Type Department Care Team (Late Contact Info) Description 08/10/2025 1:30 PM EDT Office Visit [facility] [address] [place] [phone] Heather Erazo DO [address] [place] [address] documented as of this encounter Goals Goal Patient Goal Type Associated Problems Recent Progress Patient-Stated? Author Autogenera niecy Goal Care Plan Autogenerated Problem No Marla Estrella documented as of this encounter Visit Diagnoses Not on filedocumented in this encounter Additional Health Concerns Active Problems Noted Date Diagnosed Date Autogenerated Problem 02/27/2025 documented as of this encounter Care Teams Nailhead Puncher Relationship Specialty Start Date End Date Lupillo Zimmerman MD [address] [place] [address] PCP - General Internal Medicine 01/31/25 documented as of this encounter
--- OUTSIDE RECORDS SUMMARY | 2025-04-06 16:44 | XMS_ITS | Encounter Summary ---
Author Organization [facility] Address [address] [place] [address] Care Team Providers Care Horticulture Professor Name Role Phone Lupillo Zimmerman MD Primary Care Provider [phone] Encounter Details Date Type Department Care Team Description 03/25/2018 Nurse Only [facility] Services [address] [place] [address] Jeanne Alicia, RN Social History Tobacco Use [...] this encounter Progress Notes * Jeanne Alicia, INSTALLATION COORDINATOR - 03/25/2018 3:03 PM EDT Chemotherapy Teaching [...] good support system in place. 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 Patient introduced to Najma Nurse Navigator and [...] on filedocumented in this encounter Care Teams Horticulture Professor Relationship Specialty Start Date End Date Lupillo Zimmerman MD PCP - General Internal Medicine 01/24/21 documented as of this encounter
--- OUTSIDE RECORDS SUMMARY | 2025-04-06 16:44 | XMS_ITS | Encounter Summary ---
Author Organization [facility] Address [address] [place] [address] Care Team Providers Care Public Health Officer Name Role Phone Lupillo Zimmerman MD Primary Care Provider Encounter Details Date Type Department Care Team (Late Contact Info) Description 03/07/2025 Results Follow-Up Internal Medicine - [facility] [address] [place] [address] Yesenia Dhillon MA Social History Tobacco Use Types Packs/Day Years Used Date Smoking Tobacco: Never Smokeless Tobacco: Never Alcohol Use Standard Drinks/Week Comments No 0 (1 standard drink = 0.6 oz pur e alcohol) Comments No Sex and Gender Information Value [...] Description 08/10/2025 1:30 PM EDT Office Visit [facility] Hematology Oncology [address] [place] [phone] Heather Erazo DO [address] [place] [address] documented as of this encounter Goals Goal Patient Goal Type Associated Problems Recent Progress Patient-Stated? Author Autogenera niecy Goal Care Plan Autogenerated Problem No Marla Estrella documented as of this encounter Visit Diagnoses Not on filedocumented in this encounter Additional Health Concerns Active Problems Noted Date Diagnosed Date Autogenerated Problem 02/27/2025 documented as of this encounter Care Teams Public Health Officer Relationship Specialty Start Date End Date Lupillo Zimmerman MD [address] [place] [address] PCP - General Internal Medicine 01/31/25 documented as of this encounter
== END 2025-04-06 15:35 | disposition home or self-care (01) ==
LOC: HO.RHES 13:45
PROVIDERS: PCP Internal Medicine; Visit Provider Student in an Organized Health Care Education/Training Program
DX: M35.9 Systemic involvement of connective tissue, unspecified (principal); Z79.899 Other long term (current) drug therapy
CPT/HCPCS: 99214

== ENCOUNTER 2025-04-24 08:10 | Outpatient (REF) | payer BC, SELFPAY ==
--- OUTSIDE RECORDS SUMMARY | 2025-04-24 08:19 | XMS_ITS | Encounter Summary ---
Author Organization [facility] Address [address] [place] [address] Care Team Providers Care Operations Scheduler Name Role Phone Lupillo Zimmerman MD Primary Care Provider [phone] Encounter Details Date Type Department Care Team (Late Contact Info) Description 03/07/2025 Results Follow-Up Internal Medicine - [facility] [address] [place] [address] Yesenia Dhillon MA Social History Tobacco Use [...] Description 08/10/2025 1:30 PM EDT Office Visit [facility] Hematology Oncology [address] [place] [phone] Heather Erazo DO [address] [place] [address] documented as of this encounter Goals Goal Patient Goal Type Associated Problems Recent Progress Patient-Stated? Author Autogenera niecy Goal Care Plan Autogenerated Problem No Marla Estrella documented as of this encounter Visit Diagnoses Not on filedocumented in this encounter Additional Health Concerns Active Problems Noted Date Diagnosed Date Autogenerated Problem 02/27/2025 documented as of this encounter Care Teams Operations Scheduler Relationship Specialty Start Date End Date Lupillo Zimmerman MD [address] [place] [address] PCP - General Internal Medicine 01/31/25 documented as of this encounter
--- OUTSIDE RECORDS SUMMARY | 2025-04-24 08:19 | XMS_ITS | Clinical Summary ---
Author Organization [facility] Address [address] [place] [address] Phone Care Team Providers Care Watch Repair Person Name Role Phone Lupillo Zimmerman MD Primary Care Provider [phone] Allergies No known active allergies Medications amLODIPine [...] Problem Noted Date Diagnosed Date Autoimmune disease ([facility] V24) 10/21/2024 Anxiety and depression 12/19/2022 Adenocarcinoma of colon ([facility]/HCC V24, CMS/[facility] V2 8) 06/13/2022 Primary hypertension 07/16/2021 Family history of colonic polyps 04/14/2019 Encounters Date Type Department Care Team Description 03/22/2025 1:00 PM EDT - 03/22/2025 11:59 PM EDT Hospital Encounter [facility] Infusion Center [address] [facility] [address] [place] [phone] Adenocarcinoma of colon (CMS/HCC V24, [facility] V28) [C18.9] (Primary Dx) Discharge Disposition: Home or Self Care 03/20/2025 Results Follow-Up Gastroenterology - [address] [facility] [address] [facility] [address] [place] [phone] Veronica Nguyen MA 03/16/2025 8:12 AM EDT Anesthesia Event [facility] Endoscopy [address] [place] [phone] Juarez Boyd MD 03/16/2025 7:46 AM EDT - 03/16/2025 11:59 PM EDT Hospital Encounter [facility] Endoscopy [address] [place] [phone] Zach Rodarte MD Sobo, Kathleen, CRNA Saliga, Jesse L, MD Adenocarcinoma of colon (CMS/HCC V24, CMS/HCC V28) Discharge Disposition: Home or Self Care 03/07/2025 Results Follow-Up Internal Medicine - [address] [phone] [place] 03/02/2025 1:01 PM EDT - 03/02/2025 11:59 PM EDT Hospital Encounter Radiology Department - [address] [phone] Encounter for screening mammogram for breast cancer Discharge Disposition: Home or Self Care 02/10/2025 3:30 PM EDT Office Visit [facility] - [address] [phone] Harpal Parry NP Non-recurrent acute suppurative otitis [...] Mother cirrhosis Other Paternal Grandfather (Age 50) [place] Paternal Grandmother mild de mentia Sister 1 [...] Description 08/10/2025 1:30 PM EDT Office Visit [facility] Hematology Oncology [address] [place] [phone] Heather Erazo, DO [address] [place] [address] Health Maintenance Due Date Last Done Comments [...] 03/16/2025 8:34 AM EDT Adenocarcinoma of colon ([facility]/HCC V24, CMS/HCC V28) TISSUE EXAM Routine [...] Maintenance Results * COLONOSCOPY Anesthesia - MAC; [facility] ENDOSCOPY (03/16/2025 8:34 AM EDT) Anatomical Region [...] office PRN. Narrative 03/16/2025 8:[address] [facility] GI Patient Name: Javna Bryan Procedure Date: 03/16/2025 8:05 AM Date [...] retroflexion views. Procedure Code(s): --- Professional --- 01690, Colonoscopy, flexible; with removal of tumor(s), polyp(s), or other lesion(s) by snare technique Diagnosis Code(s): --- Professional --- Z85.038, Personal history of other malignant neoplasm of large intestine D12.4, Benign neoplasm of descending colon CPT copyright 2020 [employer]. All rights reserved. The codes documented in this report are preliminary and upon hand etcher helper review may be revised to meet current compliance requirements. Zach Rodarte MD 03/16/2025 8:34:50 AM This report has been signed electronically.Zach Rodarte MD Number of Addenda: 0 Note Initiated On: 03/16/2025 8:05 AM Scope In: Scope Out: Endoscopy Department at [facility] - [address] [place] [phone] Procedure Note Zach Rodarte MD - 03/16/[address] [facility] GI Patient Name: Javan Bryan Procedure Date: [...] minimal. There was evidence of a prior gpz-rj-yajbmwdn-colonic anastomosis in the recto-sigmoid colon. This was patent and was characterized by healthy appearing mucosa. Non-bleeding internal hemorrhoids were found during retroflexion. The hemorrhoids were small. The exam was otherwise without abnormality ondirect and retroflexion views. Procedure Code(s): --- Professional --- 85887, Colonoscopy, flexible; with removal of tumor(s), polyp(s), or other lesion(s) by snare technique Diagnosis Code(s): --- Professional --- Z85.038, Personal history of other malignantneoplasm of large intestine D12.4, Benign neoplasm of descending colon CPT copyright 2020 [employer]. All rights reserved. The codes documented in this report are preliminary and upon hand etcher helper reviewmay be revised to meet current compliance requirements. Zach Rodarte MD 03/16/2025 8:34:50 AM This report has been signed electronically.Zach Rodarte MD Number of Addenda: 0 Note Initiated On: 03/16/2025 8:05 AM Scope In: Scope Out: Endoscopy Department at [facility] - [address] [place] [phone] IMPRESSION: - One 3 mm polyp in [...] - Hyperplastic polyp. 03/17/2025 8:27 AM EDT [facility] ([facility] HOSPITAL LAB at 0827 EDT Gross Description [...] multiple levels. hs/DG 03/17/2025 8:27 AM EDT [facility] Disclaimer Unless otherwise specified, all tissue is 10% NB formalin fixed and paraffin embedded. 03/17/2025 8:27 AM EDT [facility] Tissue Descending colon structure / Unknown 03/16/2025 8:28 AM EDT 03/16/2025 10:42 AM EDT us Zach Rodarte MD LAB PATHOLOGY ORDERABLES Eryn ochoa Result [facility] [address] [place] [address], * MG Mammo Digital Screening w Mauro bilat (03/02/2025 1:22 PM EDT) Anatomical Region Laterality Modality Breast Bilateral Mammography 03/06/2025 9:15 AM EDT Impressions 03/06/2025 9:18 AM EDT No mammographic evidence for malignancy. BI-RADS CATEGORY: 1 - NEGATIVE RECOMMENDATION: Screening bilateral mammogram is recommended in 1 year. Mammo Location: [facility], [address] [place] [address], [address], . -------- FINAL REPORT -------- Dictated By: Tiki Chavarria Dictated Date: 03/06/2025 09:15 ET Assigned Physician: Tiki Chavarria Reviewed and Electronically Signed By: Tiki Chavarria Signed Date: 03/06/2025 09:18 ET Workstation ID: [id number] Transcribed By: Self Edit Transcribed Date: 03/06/2025 [...] is recommended in 1 year. Mammo Location: [facility], [address] [place] [address], [id number], . -------- FINAL REPORT -------- Dictated By: Tiki Chavarria Dictated Date: 03/06/2025 09:15 ET Assigned Physician: Tiki Chavarria Reviewed and Electronically Signed By: Tiki Chavarria Signed Date: 03/06/2025 09:18 ET Workstation ID: [id number] Transcribed By: Self Edit Transcribed Date: 03/06/2025 09:15 ET us Lupillo Zimmerman MD IMG BI PROCEDURES Final Result * Comprehensive metabolic panel (08/04/2024 2:47 PM EST) Sodium 136 133 - 145 mmol/L LAB CHEMISTRY METHOD 08/04/2024 5:02 PM [facility] Potassium 3.9 3.5 - 5.5 mmol/L LAB CHEMISTRY METHOD 08/04/2024 5:02 PM [facility] Chloride 104 96 - 110 mmol/L LAB CHEMISTRY METHOD 08/04/2024 5:02 PM [facility] CO2 28 21 - 32 mmol/L LAB CHEMISTRY METHOD 08/04/2024 5:02 PM [facility] Anion Gap 4 3 - 11 LAB CHEMISTRY METHOD 08/04/2024 5:02 PM [facility] Glucose 70 70 - 100 mg/dL LAB CHEMISTRY METHOD 08/04/2024 5:02 PM [facility] BUN 18 5 - 25 mg/dL LAB CHEMISTRY METHOD 08/04/2024 5:02 PM [facility] Creatinine 0.70 0.50 - 1.10 mg/dL LAB CHEMISTRY METHOD 08/04/2024 5:02 PM [facility] eGFR 104 >=60 mL/min/1. 73m2 LAB CHEMISTRY METHOD 08/04/2024 5:02 PM [facility] Comment:Calculation based on the Chronic Kidney Disease Epidemiology Collaboration (CKD-EPI) equation refit without adjustment for race. BUN/Creatinine Ratio 25.7 LAB CHEMISTRY METHOD 08/04/2024 5:02 PM [facility] Calcium 9.8 8.5 - 10.5 mg/dL LAB CHEMISTRY METHOD 08/04/2024 5:02 PM [facility] AST (SGOT) 31 10 - 42 unit/L LAB CHEMISTRY METHOD 08/04/2024 5:02 PM [facility] ALT (SGPT) 28 10 - 60 unit/L LAB CHEMISTRY METHOD 08/04/2024 5:02 PM [facility] Alkaline Phosphatase 82 42 - 121 unit/L LAB CHEMISTRY METHOD 08/04/2024 5:02 PM EST [facility] Total Protein 7.4 6.0 - 8.0 g/dL LAB CHEMISTRY METHOD 08/04/2024 5:02 PM EST [facility] Albumin 4.3 3.2 - 5.0 g/dL LAB CHEMISTRY METHOD 08/04/2024 5:02 PM EST [facility] Total Bilirubin 0.4 0.0 - 1.4 mg/dL LAB CHEMISTRY METHOD 08/04/2024 5:02 PM EST [facility] Blood Blood sample taken from central line / Unknown Existing Catheter / Unknown 08/04/2024 2:47 PM EST 08/04/2024 4:30 PM EST Heather Erazo DO LAB BLOOD ORDERABLES Final Result [facility] [address] [place] [address], * Pap smear (04/25/2022) 04/25/2022 Narrative HISTORICAL TESTING LAB RESULTING AGENCY - 05/01/2022 3:06 PM EST [id number] THINPREP PAP, IMAGED: NEGATIVE FOR SQUAMOUS INTRAEPITHELIAL [...] Date Diagnosed Date Autogenerated Problem 02/27/2025 Insurance [facility] Care Teams Watch Repair Person Relationship Specialty Start Date End Date Lupillo Zimmerman MD [address] [place] [address] PCP - General Internal Medicine 01/31/25
--- OUTSIDE RECORDS SUMMARY | 2025-04-24 08:19 | XMS_ITS | Encounter Summary ---
Author Organization [facility] Address [address] [place] [address] Care Team Providers Care Data Center Consultant Name Role Phone Lupillo Zimmerman MD Primary Care Provider [phone] Encounter Details Date Type Department Care Team Description 03/25/2018 Nurse Only [facility] Oncology Services [address] [place] [address] Jeanne Alicia, RN Social History Tobacco Use [...] this encounter Progress Notes * Jeanne Alicia, COUPON REDEMPTION CLERK - 03/25/2018 3:03 PM EDT Chemotherapy Teaching [...] good support system in place. 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 Patient introduced to Najma Nurse Navigator and [...] on filedocumented in this encounter Care Teams Data Center Consultant Relationship Specialty Start Date End Date Lupillo Zimmerman MD PCP - General Internal Medicine 01/24/21 documented as of this encounter
--- OUTSIDE RECORDS SUMMARY | 2025-04-24 08:19 | XMS_ITS | Clinical Summary ---
Author Organization [facility] Address [address] [place] [address] Care Team Providers Care Director Gift Name Role Phone Lupillo Zimmerman MD Primary Care Provider [phone] Allergies No known active allergies Medications Medication [...] positive for metastatic carcinoma. + tumor ulceration. 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
--- OUTSIDE RECORDS SUMMARY | 2025-04-24 08:19 | XMS_ITS | Encounter Summary ---
Author Organization [facility] Address [address] [place] [address] Care Team Providers Care Director Airport Operations Name Role Phone Lupillo Zimmerman MD Primary Care Provider [phone] Encounter Details Date Type Department Care Team (Late Contact Info) Description 03/20/2025 Results Follow-Up Gastroenterology - [address] [phone] Veronica Nguyen MA Social History [...] 08/10/2025 1:30 PM EDT Office Visit [facility] Hematology Oncology [address] [place] [phone] Heather Erazo DO [address] [place] [address] documented as of this encounter Goals Goal Patient Goal Type Associated Problems Recent Progress Patient-Stated? Author Autogenera niecy Goal Care Plan Autogenerated Problem No Marla Estrella documented as of this encounter Visit Diagnoses Not on filedocumented in this encounter Additional Health Concerns Active Problems Noted Date Diagnosed Date Autogenerated Problem 02/27/2025 documented as of this encounter Care Teams Director Airport Operations Relationship Specialty Start Date End Date Lupillo Zimmerman MD [address] [place] [address] PCP - General Internal Medicine 01/31/25 documented as of this encounter
--- OUTSIDE RECORDS SUMMARY | 2025-04-24 08:19 | XMS_ITS ---
Author Organization [facility] Address [address] [place] [phone] Phone Care Team Providers Care Armhole Sewer Name Role Phone Lupillo Zimmerman MD Primary Care Provider [phone] Active Problems Problem Noted Date Diagnosed Date Autoimmune disease ([facility] V24) 10/21/2024 Anxiety and depression 12/19/2022 Adenocarcinoma of colon ([facility] V24, [facility] V2 8) 06/13/2022 Primary hypertension 07/16/2021 Family history of colonic polyps 04/14/2019 Current Treatment and Therapy Plans CENTRAL VENOUS ACCESS ( CVA ) MAINTENANCE / BLOOD DRAW / CATHETER CLEARANCE / DRESSING CHANGE / FLUSH* Plan Start Date:06/16/2024 Plan Provider:Heather Erazo DO Linked Problems Adenocarcinoma of colon ([facility] V24, [facility] V28) Treatment Medications No medications scheduled. Past Treatment and Therapy Plans No past plan information found.
[2025-04-24 13:03] LABS: MANUAL DIFF FLAG NO
[2025-04-24 13:14] LABS: Hematocrit 35.9 % (37.0-47.0); Hemoglobin 11.5 g/dl (12.0-16.0); Imm Gran Pct Auto 0.3 % (0.0-0.4); Mean Corpuscular HGB Conc 32.0 g/dl (31.0-35.0); Mean Corpuscular Hemoglobin 28.8 pg (27.0-33.0); Mean Corpuscular Volume 89.8 fL (80.0-98.0); Platelet Count 238 X10*3/uL (160-400); Red Blood Count 4.00 X10*6/uL (4.20-5.50); White Blood Count 6.3 X10*3/uL (4.8-10.8)
[2025-04-24 13:15] LABS: Imm Gran Abs Auto 0.02 X10*3/uL (0.00-0.03); Lymphocytes Absolute Auto 0.9 X10*3/uL (1.2-4.9); NRBC Abs Auto 0.000 X10*3/uL (0.0-0.012); NRBC Pct Auto 0.0 /100WBC (0.0-0.2)
[2025-04-24 16:14] LABS: Alanine Aminotransferase 22 U/L (0-31); Albumin Level 4.4 g/dL (3.5-5.0); Alkaline Phosphatase 82 U/L (39-117); Anion Gap 12 (12-20); Aspartate Amino Transferase 38 U/L (5-31); Blood Urea Nitrogen 19 mg/dL (9-16); Calcium 9.4 mg/dL (8.4-10.2); Carbon Dioxide 25 mmol/L (22-29); Chloride 104 mmol/L (96-108); Estimated Glomerular Filt Rate > 60; Potassium 4.5 mmol/L (3.3-5.1); Sodium 136 mmol/L (135-145); Total Protein 7.1 g/dL (6.5-8.0)
== END 2025-04-24 08:11 | disposition home or self-care (01) ==
LOC: HO.HKASLDS 08:10
PROVIDERS: PCP Internal Medicine; Visit Provider Student in an Organized Health Care Education/Training Program
DX: Z79.899 Other long term (current) drug therapy (principal)
CPT/HCPCS: 36415; 80053; 85025; 85652; 86140